=== PATIENT | female | born 2000 | race African-American/Black ===

== ENCOUNTER 2024-07-03 23:48 | Observation (INO) ==
--- NOTE | 2024-07-04 00:10 | Emergency Department Note ---
Impression & Plan Migraine, Rhinovirus ED Provider Note CHIEF COMPLAINT: Migraine headache HISTORY OF PRESENT ILLNESS: This 24-year-old female patient presented to the emergency department via private vehicle with a gradual onset of a severe generalized headache that started at 5 PM. The patient states the migraine is similar to their typical migraines. There has been associated photophobia, phonophobia, nausea and vomiting. The patient states she has had chills and subjective fever since Tuesday. She states that the headache came on suddenly at about. She denies any trauma or injury. There is no weakness or numbness of the extremities. There is no difficulty with speech or vision. No trauma to the head and no neck pain. The pain is severe, constant, and it is slowly increasing in severity. The patient rates the pain as sharp and throbbing and 10/10. The patient has taken 50 mg of prednisone and Imitrex as well as her regularly scheduled amitriptyline without relief of her symptoms. This is not the worst headache of the life and is similar to previous migraines. Previous imaging studies of the brain (approximately 1 month ago) have been normal. Patient has not yet followed up with neurology. She states her PCP will not send a referral because neurology is "too busy". REVIEW OF SYSTEMS: A 10 system review of systems was performed with positives and pertinent negatives listed in the history of present illness. All other systems were reviewed and are negative. ALLERGIES: NKDA PHYSICAL EXAM: Vital Signs: Reviewed Nurse's notes, vital signs stable. GENERAL: This is a 24-year-old female, who appears in pain, but non toxic in appearance and in no acute distress. MENTAL STATUS: Alert, oriented, and coherent. HEENT: Normocephalic. PERRLA. EOMI. Nares patent without nuchal rigidity. Tympanic membranes pearly glasgow without erythema or effusion bilaterally. Mucous membranes moist. NECK: Supple, no nuchal rigidity, nontender, no lymphadenopathy. HEART: Regular rhythm and normal rate without murmurs, ectopy, gallops, or rubs. LUNGS: Clear to auscultation bilaterally without wheezes, rales or rhonchi. No dullness to percussion. No accessory muscle use. No retractions. SKIN: Normal. NEUROLOGICAL: Pupils are round, equal and react to light. The optic fundi are normal and the discs are flat. The patient moves all extremities well and the gait is normal. EMERGENCY DEPARTMENT COURSE: I examined the patient. Previous medical records were reviewed. Patient was here at the end of May with similar symptoms. She did have refractory migraine and required multiple rounds of medications. Patient had CT/CT angiogram of the head and neck completed at that time which were negative. IV access was obtained. Labs drawn. Patient was medicated with IV fluids, Reglan, Toradol, diphenhydramine. Labs reviewed. Per my interpretation, there is no leukocytosis or anemia. No thrombocytopenia. Coags normal. Renal, hepatic function and electrolytes without significant abnormality. hCG negative. Respiratory bio fire testing is positive for rhinovirus. Patient was reassessed. She was updated on the workup completed. She notes her pain has gone from a 10/10 to an 8/10 with the medications she was given. Patient was medicated with IV acetaminophen, magnesium, and Zofran. Patient was again reassessed. She notes no change in her pain and still reports that in 8/10. Given the patient's persistent pain despite multiple rounds of medication, I did recommend inpatient care. I discussed case with my attending physician. I discussed the case with the live study manager. I discussed case with Dr. Gibson, [facility] hospitalist physician. He did agree to see the patient for further management. Please see hospitalist dictation regarding ongoing management and final disposition of this patient. The differential diagnosis includes acute intracranial bleed, meningitis, encephalitis, mass or mass effect, sinusitis, infection, tumor, headache, temporal arteritis and carbon monoxide exposure, URI, migraine, malignancy, among others. I attest that I have personally reviewed the patient's current medication list. Blood Pressure Screening: Patient was found to have a slightly elevated blood pressure due to circumstances. I do not believe that the patient requires hypertension monitoring. The chart was completed utilizing [employer] Speech voice recognition software. Grammatical errors, random word insertions, pronoun errors, and incomplete sentences are an occasional consequence of this system due to software limitations, ambient noise, and hardware issues. Any formal questions or concerns about the content, text, or information contained within the body of this dictation should be directly addressed to the provider for clarification. Past Med/Surg History Problem List Rhinovirus (Acute) Migraine (Acute) Medical History Migraines Surgical History No significant past surgical history Social History Smoking Status: Never smoker Preferred Language: Guinean Feels Safe at Home: Yes Home Meds Home Medications Medication Instructions Recorded Confirmed amitriptyline 10 mg tablet 10 mg PO DIRECTED 07/04/24 07/04/24 sumatriptan succinate 50 mg tablet 100 mg PO DIRECTED 07/04/24 07/04/24 Results & Data (ED) Vital Signs Vital Signs - 24 hr 07/03/24 23:51 07/04/24 00:37 07/04/24 00:39 Temperature 36.5 C Temperature Source Temporal Artery Scan Pulse Rate 65 73 Pulse Rate [Apical] Respiratory Rate 20 Respiratory Effort / Characteristics Non-Labored Spontaneous Respiratory Depth Normal Blood Pressure 133/90 Blood Pressure [Right Arm] Blood Pressure Mean 104 Blood Pressure Mean [Right Arm] Pulse Oximetry 97 98 Oxygen Delivery Method Room Air Room Air Sepsis Recent Fever Within 48 Hours No Sepsis New/Unexplained Change in Mental Status N/A Sepsis Action Taken by Nursing No Action Required 07/04/24 01:21 Temperature Temperature Source Pulse Rate Pulse Rate [Apical] 65 Respiratory Rate 20 Respiratory Effort / Characteristics Non-Labored Respiratory Depth Blood Pressure Blood Pressure [Right Arm] 103/72 Blood Pressure Mean Blood Pressure Mean [Right Arm] 82 Pulse Oximetry 100 Oxygen Delivery Method Room Air Sepsis Recent Fever Within 48 Hours Sepsis New/Unexplained Change in Mental Status Sepsis Action Taken by Nursing Laboratory Data 07/04/24 00:34 07/04/24 00:34 Lab Results 07/04/24 Range/Units 00:34 WBC 8.79 (4.8-10.8) K/ul RBC 4.67 (4.20-5.40) M/uL Hgb 12.7 (12.0-16.0) g/dl Hct 38.9 (37.0-47.0) % MCV 83.3 (80.0-100.0) fL MCH 27.2 (25.0-34.0) pg MCHC 32.6 (32.0-36.0) g/dL RDW Std Deviation 38.6 (36.4-46.3) fL RDW Coeff of Rigo 12.8 (11.5-14.5) % Plt Count 330 (130-400) K/uL MPV 8.6 L (9.4-12.4) fL Immature Gran % (Auto) 0.2 % Neut % (Auto) 93.8 % Lymph % (Auto) 4.9 % [place] % (Auto) 1.0 % Eos % (Auto) 0.0 % Baso % (Auto) 0.1 % Neut # (Auto) 8.24 H (1.40-6.50) K/uL Lymph # (Auto) 0.43 L (1.20-3.40) K/uL [place] # (Auto) 0.09 L (0.11-0.59) K/uL Eos # (Auto) 0.00 (0.00-0.50) K/uL Baso # (Auto) 0.01 (0.00-0.20) K/uL Immature Gran # (Auto) 0.02 (0.01-0.20) K/uL RBC Morphology Unremarkable PT 10.6 (9.0-12.0) Seconds INR 1.0 (0.9-1.1) APTT 23 (21-31) Seconds PTT Ratio 0.9 Sodium 137 (136-145) mmol/L Potassium 4.2 (3.5-5.1) mmol/L Chloride 105 (98-107) mmol/L Carbon Dioxide 22 (21-32) mmol/L Anion Gap 10 (3-11) BUN 7 (6-23) mg/dl Creatinine 0.72 (0.6-1.2) mg/dl Est Cr Clr Drug Dosing 96.5 ml/min Est GFR ( Amer) 136.8 ml/min Est GFR (Non-Af Amer) 118.0 ml/min BUN/Creatinine Ratio 9.7 L (10-20) Glucose 145 H (70-99(Fasting)) mg/dl Calcium 9.5 (8.6-10.3) mg/dl Magnesium 1.8 (1.7-2.4) mg/dl Total Bilirubin 0.3 (0.2-1.0) mg/dl AST 22 (13-39) U/L ALT 13 (7-52) U/L Alkaline Phosphatase 67 (34-104) U/L Total Protein 7.7 (6.0-8.3) gm/dl Albumin 4.4 (3.4-5.0) gm/dl Globulin 3.3 (2.5-4.0) gm/dl Albumin/Globulin Ratio 1.3 (0.9-2) HCG, Qual Negative (Negative) Adenovirus (PCR) Not Detected (NotDetected) B. pertussis DNA (PCR) Not Detected (NotDetected) B.parapertussis DNA PCR Not Detected (NotDetected) C. pneumoniae DNA (PCR) Not Detected (NotDetected) Coronavirus OC43 (PCR) Not Detected (NotDetected) Coronavirus HKU1 (PCR) Not Detected (NotDetected) Coronavirus 229E (PCR) Not Detected (NotDetected) SARS-CoV-2 (PCR) Not Detected (NotDetected) Coronavirus NL63 (PCR) Not Detected (NotDetected) Human Metapneumovir PCR Not Detected (NotDetected) Influenza Type A (PCR) Not Detected (NotDetected) Influenza Type B (PCR) Not Detected (NotDetected) M. pneumoniae (PCR) Not Detected (NotDetected) Parainfluenza 1 (PCR) Not Detected (NotDetected) Parainfluenza 2 (PCR) Not Detected (NotDetected) Parainfluenza 3 (PCR) Not Detected (NotDetected) Parainfluenza 4 (PCR) Not Detected (NotDetected) RSV (PCR) Not Detected (NotDetected) Entero/Rhino (PCR) DETECTED A (NotDetected) Administered Medications Discontinued Medications Diphenhydramine HCl (Diphenhydramine 50 Mg/Ml Vial) 25 mg IV NOW STA Stop: 07/04/24 00:08 Last Admin: 07/04/24 00:47 Dose: 25 mg Documented By: CHRIS Fluticasone Propionate (Fluticasone Propionate Na Spr 16 Gm Btl) 2 sprays NA NOW STA Stop: 07/04/24 02:05 Last Admin: 07/04/24 03:04 Dose: 2 sprays Documented By: CDM Sodium Chloride (Nss) 1,000 mls @ 999 mls/hr IV .Q1H1M MAYKEL Stop: 07/04/24 01:15 Last Infusion: 07/04/24 02:17 Dose: Infused Documented By: Admin: 07/04/24 00:31 Dose: 999 mls/hr Documented By: AN Acetaminophen (Ofirmev) 1,000 mg in 100 mls @ 400 mls/hr IV NOW STA Stop: 07/04/24 02:18 Last Infusion: 07/04/24 02:38 Dose: Infused Documented By: Admin: 07/04/24 02:11 Dose: 400 mls/hr Documented By: AN Magnesium Sulfate/Dextrose (Magnesium Sulfate / D5w) 1 gm in 100 mls @ 100 mls/hr IV NOW STA Stop: 07/04/24 03:04 Last Infusion: 07/04/24 03:45 Dose: Infused Documented By: Admin: 07/04/24 02:11 Dose: 100 mls/hr Documented By: AN Ketorolac Tromethamine (Ketorolac 30 Mg/Ml Vial) 30 mg IV NOW STA Stop: 07/04/24 00:08 Last Admin: 07/04/24 00:47 Dose: 30 mg Documented By: AN Metoclopramide HCl (Metoclopramide Hcl Inj 5 Mg/Ml 2 Ml Vial) 10 mg IV NOW STA Stop: 07/04/24 00:08 Last Admin: 07/04/24 00:47 Dose: 10 mg Documented By: AN Ondansetron HCl (Ondansetron Inj 2 Mg/Ml 2 Ml Vial) 4 mg IV NOW STA Stop: 07/04/24 02:08 Last Admin: 07/04/24 02:11 Dose: 4 mg Documented By: AN Discharge Plan Visit Data Chief Complaint: Headache Stated Complaint: MIGRANE ED Provider: Rico Chaudhary ED Midlevel Provider: Yeny Santos Discharge Problem: Migraine, Rhinovirus Patient Disposition: Admitted As Inpatient Forms Stand Alone Forms: [facility] Prescriptions Prescriptions: No Action amitriptyline 10 mg tablet 10 mg PO DIRECTED sumatriptan succinate 50 mg tablet 100 mg PO DIRECTED Referrals Referrals: PCP,NO [Primary Care Provider] -
[2024-07-04] MEDS: SODIUM CHLORIDE 0.9% 1,000 ML IV SCH (00:31)
[2024-07-04] MEDS: diphenhydrAMINE 50 MG/ML VIAL IV STA (00:47)
[2024-07-04] MEDS: KETOROLAC 30 MG/ML VIAL IV STA (00:47)
[2024-07-04] MEDS: METOCLOPRAMIDE HCL INJ 5 MG/ML 2 ML VIAL IV STA (00:47)
[2024-07-04 00:52] LABS: Hematocrit (blood only) 38.9 % (37.0-47.0); Hemoglobin 12.7 g/dl (12.0-16.0); Mean Corpuscular Hemoglobin 27.2 pg (25.0-34.0); Mean Corpuscular Hgb Conc 32.6 g/dL (32.0-36.0); Mean Corpuscular Volume 83.3 fL (80.0-100.0); Mean Platelet Volume 8.6 fL (9.4-12.4); Platelet Count 330 K/uL (130-400); RDW Coefficient of Variation 12.8 % (11.5-14.5); RDW Standard Deviation 38.6 fL (36.4-46.3); Red Blood Count 4.67 M/uL (4.20-5.40); White Blood Count 8.79 K/ul (4.8-10.8)
[2024-07-04 01:07] LABS: Albumin Globulin Ratio 1.3 (0.9-2); Albumin Level 4.4 gm/dl (3.4-5.0); BUN Creatinine Ratio 9.7 (10-20); Bilirubin,Total 0.3 mg/dl (0.2-1.0); Calcium 9.5 mg/dl (8.6-10.3); Creatinine Clr Calc Pharmacy 96.5 ml/min; Est GFR (African American) 136.8 ml/min; Globulin 3.3 gm/dl (2.5-4.0); Potassium 4.2 mmol/L (3.5-5.1); Pregnancy Test, Serum Negative (Negative); Total Protein 7.7 gm/dl (6.0-8.3)
[2024-07-04 01:18] LABS: Basophils # (auto) 0.01 K/uL (0.00-0.20); Basophils % (auto) 0.1 %; Immature Granulocytes # (auto) 0.02 K/uL (0.01-0.20); Immature Granulocytes % (auto) 0.2 %; Lymphocytes # (auto) 0.43 K/uL (1.20-3.40); Lymphocytes % (auto) 4.9 %; Monocytes # (auto) 0.09 K/uL (0.11-0.59); Neutrophils # (auto) 8.24 K/uL (1.40-6.50); Neutrophils % (auto) 93.8 %; RBC Morphology Unremarkable
[2024-07-04 01:25] LABS: Partial Thromboplastin Ratio 0.9; Partial Thromboplastin Time 23 Seconds (21-31); Prothrombin Time 10.6 Seconds (9.0-12.0)
[2024-07-04 01:44] LABS: Adenovirus PCR Not Detected (NotDetected); Bordetella parapertussis PCR Not Detected (NotDetected); Bordetella pertussis PCR Not Detected (NotDetected); Chlamydia pneumoniae PCR Not Detected (NotDetected); Coronavirus 229E PCR Not Detected (NotDetected); Coronavirus CoV-2 (COVID19)PCR Not Detected (NotDetected); Coronavirus HKU1 PCR Not Detected (NotDetected); Coronavirus NL63 PCR Not Detected (NotDetected); Coronavirus OC43PCR Not Detected (NotDetected); Human Metapneumovirus PCR Not Detected (NotDetected); Influenza A PCR Not Detected (NotDetected); Influenza B PCR Not Detected (NotDetected); Mycoplasma pneumoniae PCR Not Detected (NotDetected); Parainfluenza Virus 1 PCR Not Detected (NotDetected); Parainfluenza Virus 2 PCR Not Detected (NotDetected); Parainfluenza Virus 3 PCR Not Detected (NotDetected); Parainfluenza Virus 4 PCR Not Detected (NotDetected); Respiratory Syncytial VirusPCR Not Detected (NotDetected); Rhinovirus/Enterovirus PCR DETECTED (NotDetected)
[2024-07-04] MEDS: MAGNESIUM SULFATE / D5W 1 GM/100 ML BAG IV STA (02:11)
[2024-07-04] MEDS: ONDANSETRON INJ 2 MG/ML 2 ML VIAL IV STA (02:11)
[2024-07-04] MEDS: ACETAMINOPHEN 1,000 MG/100 ML VIAL IV STA (02:11)
[2024-07-04 02:26] LABS: Magnesium 1.8 mg/dl (1.7-2.4)
[2024-07-04] MEDS: FLUTICASONE PROPIONATE NA SPR 16 GM BTL STA (03:04)
[2024-07-04] MEDS ORDERED: oxyCODONE HCL IR 5 MG TAB (IMMEDIATE RELEASE) PO PRN (04:14)
[2024-07-04] MEDS: Patient's ALLERGY Info needs ENTERED STA (04:43)
[2024-07-04] MEDS ORDERED: LORazepam 0.5 MG TAB PO PRN (04:49)
[2024-07-04] MEDS ORDERED: KETOROLAC TROMETHAMINE 15 MG/ML VIAL IV PRN (04:49)
[2024-07-04] MEDS: DEXAMETHASONE SOD INJ 4 MG/ML VIAL IV STA (04:55)
--- NOTE | 2024-07-04 05:14 | History & Physical Report ---
Date of Service July 04, 2024 Assessment & Plan (1) Headache: Plan: Intractable migraine headache Possibly precipitated by entero/rhinovirus infection Hyperglycemia with DM OBS GMF CT head given patient description of worst migraine attack Decadron and Imitrex trial Increase maintenance amitriptyline dose from 10 mg to 25 mg at bedtime Neurology consult if without improvement Supportive management for viral illness Check hemoglobin A1c DVT prophylaxis. SCDs Full code Text document was generated using [employer] voice recognition software. It may contain grammatical or spelling errors. Kindly contact undersigned for clarification of any documentation item in question. History of Present Illness Chief Complaint: Intractable headache Primary Care Provider: Francis Booker History obtained from patient, family, and records. Medical history significant for migraine. Last ER visit May 2024 for headache. Patient seen at PCPs office on follow-up visit last month. Patient started on amitriptyline at bedtime for migraine. Yesterday, patient had migraine attack more intense than usual. Bright spots, nausea, vomiting. Denies chest pain, SOB, abdominal pain. Denies unusual stress at home. Intractable discomfort at the ER. Medical History as above Surgical History : None Family History : Bronchial asthma Personal/Social history : Non-smoker, no EtOH intake, unemployed Allergies Allergy/AdvReac Type Severity Reaction Status Date / Time No Known Allergies Allergy Verified 07/04/24 04:39 Home Medications Medication Instructions Recorded Confirmed Type amitriptyline 10 mg tablet 10 mg PO DIRECTED 07/04/24 07/04/24 History sumatriptan succinate 50 mg tablet 100 mg PO DIRECTED 07/04/24 07/04/24 History Past Med/Surg History Problem List Rhinovirus (Acute) Migraine (Acute) Medical History Migraines Surgical History No significant past surgical history Social History Smoking Status: Never smoker Second Hand Exposure: No; Do You Dip or Chew Tobacco: No; Hx Alcohol Use: No Hx Substance Use: No Preferred Language: Romansh Communication Ability: Effective Director Of Special Education Required: No Beliefs That Will Affect Care: None Current Living Situation: Parent Current Living Situation Comment: lives with mom Other Information That Helps Us Care for You: No Feels Safe at Home: Yes Safety Concerns: Feels Safe At This Time Assistive Devices: None Review of Systems Review of Systems: As per HPI, all other systems reviewed and negative Physical Exam Physical Exam: GENERAL: uncomfortable, no respiratory distress SKIN: Normal color, warm HEENT: [place]pectacled, [place] palpebral conjunctivae, no ptosis, dry buccal mucosa NECK : Supple, no tenderness CHEST : CTA, no tenderness HEART : RRR, no obvious murmurs ABDOMEN: Some distention, nontender EXTREMITIES : Minimal LE swelling, no LE tenderness, no other conspicuous deformities noted NEUROLOGIC : Coherent, no facial asymmetry, no other gross focality Results & Data Results & Data Vital Signs (Past 12 Hours) Vital Signs Temp Pulse Pulse Resp BP BP Pulse Ox 07/04/24 04:32 66 07/04/24 01:21 65 20 103/72 100 07/04/24 00:39 73 07/04/24 00:37 98 07/03/24 23:51 36.5 C 65 20 133/90 97 O2 Del Method 07/04/24 04:32 07/04/24 01:21 Room Air 07/04/24 00:39 07/04/24 00:37 Room Air 07/03/24 23:51 Room Air Laboratory Results Laboratory Results WBC 8.79 K/ul (4.8-10.8) 07/04/24 00:34 RBC 4.67 M/uL (4.20-5.40) 07/04/24 00:34 Hgb 12.7 g/dl (12.0-16.0) 07/04/24 00:34 Hct 38.9 % (37.0-47.0) 07/04/24 00:34 MCV 83.3 fL (80.0-100.0) 07/04/24 00:34 MCH 27.2 pg (25.0-34.0) 07/04/24 00:34 MCHC 32.6 g/dL (32.0-36.0) 07/04/24 00:34 RDW Std Deviation 38.6 fL (36.4-46.3) 07/04/24 00:34 RDW Coeff of Rigo 12.8 % (11.5-14.5) 07/04/24 00:34 Plt Count 330 K/uL (130-400) 07/04/24 00:34 MPV 8.6 fL (9.4-12.4) L 07/04/24 00:34 Immature Gran % (Auto) 0.2 % 07/04/24 00:34 Neut % (Auto) 93.8 % 07/04/24 00:34 Lymph % (Auto) 4.9 % 07/04/24 00:34 [place] % (Auto) 1.0 % 07/04/24 00:34 Eos % (Auto) 0.0 % 07/04/24 00:34 Baso % (Auto) 0.1 % 07/04/24 00:34 Neut # (Auto) 8.24 K/uL (1.40-6.50) H 07/04/24 00:34 Lymph # (Auto) 0.43 K/uL (1.20-3.40) L 07/04/24 00:34 [place] # (Auto) 0.09 K/uL (0.11-0.59) L 07/04/24 00:34 Eos # (Auto) 0.00 K/uL (0.00-0.50) 07/04/24 00:34 Baso # (Auto) 0.01 K/uL (0.00-0.20) 07/04/24 00:34 Immature Gran # (Auto) 0.02 K/uL (0.01-0.20) 07/04/24 00:34 RBC Morphology Unremarkable 07/04/24 00:34 PT 10.6 Seconds (9.0-12.0) 07/04/24 00:34 INR 1.0 (0.9-1.1) 07/04/24 00:34 APTT 23 Seconds (21-31) 07/04/24 00:34 PTT Ratio 0.9 07/04/24 00:34 Sodium 137 mmol/L (136-145) 07/04/24 00:34 Potassium 4.2 mmol/L (3.5-5.1) 07/04/24 00:34 Chloride 105 mmol/L (98-107) 07/04/24 00:34 Carbon Dioxide 22 mmol/L (21-32) 07/04/24 00:34 Anion Gap 10 (3-11) 07/04/24 00:34 BUN 7 mg/dl (6-23) 07/04/24 00:34 Creatinine 0.72 mg/dl (0.6-1.2) 07/04/24 00:34 Est Cr Clr Drug Dosing 96.5 ml/min 07/04/24 00:34 Est GFR ( Amer) 136.8 ml/min 07/04/24 00:34 Est GFR (Non-Af Amer) 118.0 ml/min 07/04/24 00:34 BUN/Creatinine Ratio 9.7 (10-20) L 07/04/24 00:34 Glucose 145 mg/dl (70-99(Fasting)) H 07/04/24 00:34 Calcium 9.5 mg/dl (8.6-10.3) 07/04/24 00:34 Magnesium 1.8 mg/dl (1.7-2.4) 07/04/24 00:34 Total Bilirubin 0.3 mg/dl (0.2-1.0) 07/04/24 00:34 AST 22 U/L (13-39) 07/04/24 00:34 ALT 13 U/L (7-52) 07/04/24 00:34 Alkaline Phosphatase 67 U/L (34-104) 07/04/24 00:34 Total Protein 7.7 gm/dl (6.0-8.3) 07/04/24 00:34 Albumin 4.4 gm/dl (3.4-5.0) 07/04/24 00:34 Globulin 3.3 gm/dl (2.5-4.0) 07/04/24 00:34 Albumin/Globulin Ratio 1.3 (0.9-2) 07/04/24 00:34 HCG, Qual Negative (Negative) 07/04/24 00:34 Adenovirus (PCR) Not Detected (NotDetected) 07/04/24 00:34 B. pertussis DNA (PCR) Not Detected (NotDetected) 07/04/24 00:34 B.parapertussis DNA PCR Not Detected (NotDetected) 07/04/24 00:34 C. pneumoniae DNA (PCR) Not Detected (NotDetected) 07/04/24 00:34 Coronavirus OC43 (PCR) Not Detected (NotDetected) 07/04/24 00:34 Coronavirus HKU1 (PCR) Not Detected (NotDetected) 07/04/24 00:34 Coronavirus 229E (PCR) Not Detected (NotDetected) 07/04/24 00:34 SARS-CoV-2 (PCR) Not Detected (NotDetected) 07/04/24 00:34 Coronavirus NL63 (PCR) Not Detected (NotDetected) 07/04/24 00:34 Human Metapneumovir PCR Not Detected (NotDetected) 07/04/24 00:34 Influenza Type A (PCR) Not Detected (NotDetected) 07/04/24 00:34 Influenza Type B (PCR) Not Detected (NotDetected) 07/04/24 00:34 M. pneumoniae (PCR) Not Detected (NotDetected) 07/04/24 00:34 Parainfluenza 1 (PCR) Not Detected (NotDetected) 07/04/24 00:34 Parainfluenza 2 (PCR) Not Detected (NotDetected) 07/04/24 00:34 Parainfluenza 3 (PCR) Not Detected (NotDetected) 07/04/24 00:34 Parainfluenza 4 (PCR) Not Detected (NotDetected) 07/04/24 00:34 RSV (PCR) Not Detected (NotDetected) 07/04/24 00:34 Entero/Rhino (PCR) DETECTED (NotDetected) A 07/04/24 00:34 Code Status & VTE Plan VTE Prophylaxis Plan VTE Prophylaxis will be ordered: Yes
[2024-07-04] MEDS: SODIUM CHLORIDE 0.9% 1,000 ML IV ONE (05:19)
[2024-07-04] MEDS: PROMETHAZINE 6.25 MG/50.25 ML BAG IV PRN (05:30)
[2024-07-04] MEDS: SUMAtriptan succinate 6 MG/0.5 ML VIAL SQ STA (05:33)
--- NOTE | 2024-07-04 06:45 | CT Scan Report ---
CT OF THE HEAD WITHOUT CONTRAST CLINICAL HISTORY: Intractable headache. COMPARISON STUDY: Head CT and CTA of the head June 02, 2024. CT DOSE: 700.73 mGy.cm TECHNIQUE: Helical axial images of the head were obtained without IV contrast. Automated exposure con trol was utilized for the study. A dose lowering technique was utilized adhering to the principles o f ALARA. FINDINGS: No acute intracranial hemorrhage, midline shift or mass effect is present. The ventricular system is unremarkable. The basal cisterns are patent. No extra-axial collections are present. There are no findings to suggest acute dural sinus thrombosis or acute territorial infarct. No significant calvarial abnormalities are present. There is mild ethmoid sinus mucosal thickening. IMPRESSION: No acute intracranial findings. ACT 112: Negative or not required by law. Electronically signed by: Markus Vallecillo M.D. 07/04/2024 6:44 AM
[2024-07-04 07:18] LABS: Estimated Average Glucose 114 mg/dl; Hemoglobin A1C 5.6 % (4.5-5.6)
[2024-07-04 07:48] VITALS: BP 115/77; PULSE 80; RESP 18; TEMP 97.7; O2SAT 99
[2024-07-04] MEDS: ACETAMINOPHEN 325 MG TAB PO PRN (07:55)
--- OUTSIDE RECORDS SUMMARY | 2024-07-04 12:49 | External Medical Summary | Summary of Care ---
Author Name Unknown Organization [facility] Address [address] [place] [address] Phone [phone] Care Team Providers Care Table Lever Operator Name Role Phone Unavailable Primary Care Provider Unavailabl e Reason for Visit * Reason Onset Date Comments Emergency Department Follow-Up Medication Administration 06/06/2024 Flu an d/or Pneumo Inj Encounter Details Date Type Department Care Team (Late st Contact Info) Description 06/06/2024 11:00 AM EDT Office Visit General Internal Medicine [facility] [place] [address] [facility] [place] [address] Cathy Mckinney MD [address] [facility] [place] [address] Intractable migraine without aura and with status migrainosus*; Intractable migraine with aura with status migrainosus; Need for prophylactic vaccination and inoculation against influenza Allergies No known active allergiesdocumented as of this encounter (statuses as of 06/06/2024) Medications Medication Sig Dispensed Refills Start Date End Date Status Propranolol HCl ER 60 MG Oral Capsule Extended Release 24 Hour (Inderal LA)Indications:Intr actable migraine with aura with status migrainosus Take 1 Capsule by mouth in the morning. 30 Capsule 5 08/03/2023 Active Baclofen 10 MG Oral Tablet (Lioresal) Take 1 Tablet by mouth in the morning and 1 Tablet before bedtime. 20 Tablet 08/03/2023 Active Additional Information Patient not taking.Reported on 06/06/2024 Amitriptyline HCl 10 MG Oral Tablet (Elavil)Indications :Intractable migraine with aura with status migrainosus Take 1 Tablet by mouth at bedtime. 30 Tablet 5 06/06/2024 Active predniSONE 10 MG Oral Tablet (Deltasone)Indicati ons:Intractable migraine with aura with status migrainosus Take 5 tabs for 2 days, 4 tabs for 2 days, 3 tabs for 2 days, 2 tabs for 2 days 1 tab for 2 days 30 Tablet 06/06/2024 Active Ondansetron 8 MG Oral Tablet Disintegrating (Zofran)Indications :Intractable migraine with aura with status migrainosus Place 1 Tablet on tongue every 8 hours as needed for Nausea. dissolve on tongue. 30 Tablet 5 06/06/2024 Active SUMAtriptan Succinate 50 MG Oral Tablet (Imitrex)Indication s:Intractable migraine with aura with status migrainosus Take 2 tablets at onset of migraine and one tablet every 2 hours as needed, not more than 5 tablets in 24 hours 6 Tablet 5 06/06/2024 Active Rizatriptan Benzoate 10 MG Oral Tablet Disintegrating (Maxalt-QUARRY PLUG AND FEATHER DRILLER)Indicat ions:Intractable migraine with aura with status migrainosus Take 1 Tablet by mouth as needed for Migraine. at onset of headache, may repeat every 2 hours. No more than 3 pills in 24 hours 20 Tablet 3 08/03/2023 4 Discontinu ed(Medicat ion/Dose Changed) Ondansetron 8 MG Oral Tablet Disintegrating (Zofran)Indications :Intractable migraine with aura with status migrainosus Place 1 Tablet on tongue every 8 hours as needed for Nausea. dissolve on tongue. 30 Tablet 5 08/03/2023 4 Discontinu ed(Refill) methylPREDNISolone 4 MG Oral Tablet Therapy Pack (Medrol Dosepack)Indication s:Intractable migraine with aura with status migrainosus follow package directions 21 Tablet 08/03/2023 4 Discontinu ed(End of Procedure) documented as of this encounter (statuses as of 06/06/2024) Active Problems Problem Noted Date Diagnosed Date Migraine 08/03/2023 documented as of this encounter (statuses as of 06/06/2024) Immunizations Name Administration Dates Next Due DTaP Dipth/Tet/Acell Pertussis (Infanrix), Peds 10/15/2005,05/31/2002,2001,06/23,2001 HIB Hep B - HIB Hepatitis B (Comvax) 05/31/2002, 2001,2001 IPV - Polio Virus Vaccine (Inact) 2001,2001,2001,04/25 MMR - Measles/Mumps/Rubella Vaccine 10/15/2005,0 04/16/2002 Meningococcal Conjugate Vacc ine (Menactra/Menveo) 11/13/2012 PPD 10/15/2005,04/16/2002 Pneumococcal Conjugate Vacci ne, 7 Valent 05/31/2002,2001,2001,04/25 Seasonal Influenza Virus Vac cine, Unspecified Formulation 11/13/2012,08/20/2002 Seasonal Influenza, Trivalen t, (IIV3), PF, (Fluzone) 06/06/2024 TDAP, Age 7 and older, IM (Adacel) 11/13/2012 Varicella Vaccine (Chicken Pox) 06/28/2008,04/16 documented as of this encounter Social History Tobacco Use Types Packs/Day Years Used Date Smoking Tobacco: Never Smokeless Tobacco: Never Tobacco Cessation:Counseling Given: Not Answered Alcohol Use Standard Drinks/Week Comments Yes 0 (1 standard drink = 0.6 oz pur e alcohol) rare Hunger Vital Sign Answer Date Recorded Within the past 12 months, y ou worried that your food would run out before you got the money to buy more. Never true 08/03/20 23 Within the past 12 months, t he food you bought just didn't last and you didn't have money to get more. Never true 08/03/2023 Childcare Answer Date Recorded Do you feel overwhelmed with taking care of a child, family member or friend? No 08/03/2023 Does your family need help f inding childcare? (Household - for ages 0-17 years) Not on file 08/03/2023 Clothing Answer Date Recorded Have you been unable to get clothing when it was really needed? No 08/03/2023 Is your family able to get c lothes or diapers when needed? (Household - for ages 0-17 years) Not on file 08/03/2023 Personal Safety Answer Date Recorded Do you feel unsafe or have concerns for your saf ety? No 08/03/2023 Do you have concerns for you r family's safety? (Household - for ages 0-17 years) Not on file 08/03/2023 Utilities Answer Date Recorded Do you have trouble paying y our heating, water, or electric bill? No 08/03/2023 Is your family able to pay t he heat, water, or electric bill? (Household - for ages 0-17 years) Not on file 08/03/2023 Does your family have access to good internet? (Household - for ages 0-17 years) Not on file 08/03/2023 Employment Status Answer Date Recorded Are you unemployed or without regular income? No 08/03/2023 [facility] the household have a [facility] source [facility] income? (Household - for ages 0-17 years) Not on file 08/03/2023 Social Connections Answer Date Recorded How often do you feel lonely or isolated from th ose around you? Rarely 08/03/2023 Financial Resource Strain Answer Date R ecorded Do you have any trouble payi ng for your medications, or do you think you might in the future? No 08/03/2023 Does your family have troubl e paying for medicine? (Household - for ages 0-17 years) Not on file 08/03/2023 Transportation Needs Answer Date Record ed READ ONLY Do you have troubl e getting a ride to medical visits or work? Never True 08/03/2023 Does your family have a hard time getting a ride to doctors visits? (Household - for ages 0-17 years) Not on file 08/03/2023 Has lack of transportation k ept you from medical appointments, meetings, work, or from getting things needed for daily living? Check all that apply. (Adult - for ages 18 years and over) Not on file 08/03/2023 Do you (or your family) have trouble finding or paying for a ride (transportation)? (Household - for ages 0-17 years) Not on file 08/03/2023 Housing Stability Answer Date Recorded Do you currently live in a s helter or have no steady place to sleep at night? No 08/03/2023 READ ONLY Do you think you a re at risk of becoming homeless? No 08/03/2023 Does your family worry about paying for your home or becoming homeless? (Household - for ages 0-17 years) Not on file 1 10/03/2022 Are you homeless or worried that you might be in the future? (Adult - for ages 18 years and over) Not on file Are you (or your family) wendy eless or worried that you might be in the future? (Household - for ages 0-17 years) Not on file Food Insecurity Answer Date Recorded Do you need food for this week? No 08/03/2023 Are you able to get enough f ood for your family? (Household - for ages 0-17 years) Not on file 08/03/2023 Does your family need food t his week? (Household - for ages 0-17 years) Not on file 08/03/2023 Do you always have enough fo od for your family? (Household - for ages 0-17 years) Not on file 08/03/2023 Sex and Gender Information Value Date Recorded Sex Assigned at Female 08/03/2023 10:30 AM EDT Gender Identity Female 08/03/2023 10:30 AM EDT Sexual Orientation Choose not to disclose 2022 10:30 AM EDT Job Start Date Occupation Industry Not on file Not on file Not on file documented as of this encounter Last Filed Vital Signs Vital Sign Reading Time Taken Comments Blood Pressure 102/70 06/06/2024 11:08 AM EDT Pulse 85 06/06/2024 11:08 AM EDT Temperature 37.3 C (99.2 F) 06/06/2024 11:08 AM E DT Respiratory Rate 16 06/06/2024 11:08 AM EDT Oxygen Saturation - - Inhaled Oxygen Concentration - - Weight 58.3 kg (128 lb 9.6 oz) 06/06/2024 11:08 AM EDT Height 150.4 cm (4' 11.21") 06/06/2024 11:08 AM EDT Body Mass Index 25.79 06/06/2024 11:08 AM EDT documented in this encounter Patient Instructions * Patient Instructions* Anu Muhammad MED ASSIST - 06/06/2024 11:38 AM EDT ~~PATIENT INSTRUCTIONS FOR FLU SHOT~~ Possible side effects of influenza vaccine, (flu shot), are usually mild and include: 1. Soreness or redness at injection site 2. Low grade fever 3. Body aches You may use Tylenol/Acetaminophen as needed for these symptoms. LET YOUR DOCTOR KNOW IMMEDIATELY IF YOU HAVE DIFFICULTY BREATHING OR SWALLOWING, EXPERIENCE ITCHINGOF FEET OR HANDS, HAVE SWELLING OF EYES, FACE OR INSIDE OF NOSE. documented in this encounter Progress Notes * Anu Muhammad MED ASSIST - 06/06/2024 11:38 AM EDT PRE - ADMINISTRATION DOCUMENTATION Are you experiencing any cold symptoms or fever? No Have you had Guillain-[place] Syndrome (an illness that causes paralysis) within the last 6 weeks? No Have you had the flu shot in the past? YES Have you ever had a reaction to the flu shot? No GIRISH Cantu, 06/06/2024 11:38 AM Immunization Administration Documentation Time Out Procedure Performed: Yes Patient Identified (Ask Name/Date of ): Yes Does the patient have a fever greater than 101 degrees today? No Patient allergic to latex? No VFC Stock: No Immunization(s) verified: Yes, Immunization Name: Flu, VIS Sheet(s) given: Yes Verified Side and Site: Yes Verified Shot(s) with Parent(s)/Patient: Yes * Cathy Mckinney MD - 06/06/2024 11:19 AM EDT SUBJECTIVE: Karina Mcgarry is a 24 year old female. Chief Complaint Patient presents with Emergency Department Follow-Up HPI: 24 year old YOfemale with PMH as listed below presents here for ER follow up. Pt went to ER 5 days and 7-10 days ago twice with severe headache on the left side specially temporal and also asso with nausea, light sensitivity, sound sensitivity, blurring of vision, sometimes lightheadedness and ringing in the left ear but no numbness and tingling and found to have normal blood work and CT of head and treated with pain medications which helped. ER note is not available so not able to see all details.. Since discharge feeling same . New issue now -migraine for last 1 year but getting worse for last 2 weeks been constant, lasting for hours and all day , worst 05/22 . On propanolol for last 8 months not helpful and rizatriptan not helping -baclofen helps some and zofran help with nausea -some stress and insomnia for a while but more lately . Trouble falling sleep . Also neck pain and both jaw pain -drinks plenty of fluid , caffeine Patient Active Problem List Diagnosis Migraine Current Outpatient Medications Medication Sig Dispense Refill Rizatriptan Benzoate 10 MG Oral Tablet Disintegrating (Maxalt-QUARRY PLUG AND FEATHER DRILLER) Take 1 Tablet by mouth as neededfor Migraine. at onset of headache, may repeat every 2 hours. No more than 3 pills in 24 hours 20 Tablet 3 Propranolol HCl ER 60 MG Oral Capsule Extended Release 24 Hour (Inderal LA) Take 1 Capsule by mouthin the morning. 30 Capsule 5 Ondansetron 8 MG Oral Tablet Disintegrating (Zofran) Place 1 Tablet on tongue every 8 hours as needed for Nausea. dissolve on tongue. (Patient not taking: Reported on 06/06/2024) 30 Tablet 5 methylPREDNISolone 4 MG Oral Tablet Therapy Pack (Medrol Dosepack) follow package directions (Patient not taking: Reported on 06/06/2024) 21 Tablet 0 Baclofen 10 MG Oral Tablet (Lioresal) Take 1 Tablet by mouth in the morning and 1 Tablet before bedtime. (Patient not taking: Reported on 06/06/2024) 20 Tablet 0 No current facility-administered medications for this visit. The patient's medication list was reviewed and updated as needed. Past Medical History: Diagnosis Date Asthma Social History Socioeconomic History Marital status: Single Tobacco Use Smoking status: Never Smokeless tobacco: Never Vaping Use Vaping status: Never Used Substance and Sexual Activity Alcohol use: Yes Comment: rare Drug use: Never Social Determinants of Health Financial Resource Strain: Low Risk (08/03/2023) Financial Resource Strain Do you have any trouble paying for your medications, or do you think you might in the future? (Adult - for ages 18 years and over): No Food Insecurity: No Food Insecurity (08/03/2023) Food Insecurity Do you need food for this week? (Adult - for ages 18 years and over): No Transportation Needs: No Transportation Needs (08/03/2023) Transportation Needs Do you have trouble getting a ride to medical visits or work? (Adult - for ages 18 years and over):Never True Social Connections: Socially Integrated (08/03/2023) Social Connections How often do you feel lonely or isolated from those around you? (Adult - for ages 18 years and over): Rarely Housing Stability: Low Risk (08/03/2023) Housing Stability Do you currently live in a fci or have no steady place to sleep at night? (Adult - for ages 18 years and over): No Do you think you are at risk of becoming homeless? (Adult - for ages 18 years and over): No Review of patient's allergies indicates: No Known Allergies Family History Problem Relation Name Age of Onset Asthma Mother Bruna Mcgarry Cancer Mother Bruna Mcgarry Allergies Sister Cristofer Peace Family Status Relation Status Mo (Not Specified) Sis (Not Specified) REVIEW OF SYSTEMS: All 10 systems reviewed and negative except mentioned in HPI OBJECTIVE: BP 102/70 | Pulse 85 | Temp 37.3 C (99.2 F) (Tympanic) | Resp 16 | Ht 1.504 m (4' 11.21") | Wt58.3 kg (128 lb 9.6 oz) | BMI 25.79 kg/m | BSA 1.56 m PHYSICAL EXAM: General: alert, healthy, and no distress Head: Normocephalic, No masses, lesions, tenderness or abnormalities, TMJ tendernes +ve b/l Ears: External ears normal, Canals clear, TM's Normal Nose: no purulent discharge, mucosal edema, mucosal erythema Oropharynx: no exudate, no erythema, lips, buccal mucosa, and tongue normal, and mucous membranes are moist Neck: supple, no adenopathy, no bruits, thyroid normal size, non-tender, without nodularity Heart: regular rate & rhythm, no murmur, and no gallops Lungs: chest symmetric with normal AP diameter, no chest deformities noted, no chest wall tenderness, lungs clear to auscultation Abdomen: abdomen soft, non-tender, normal bowel sounds, and no masses or organomegaly Extremities: less than 2 second capillary refill, no joint deformities, effusion, or inflammation ASSESSMENT AND PLAN Intractable migraine without aura and with status migrainosus (Primary) As below Intractable migraine with aura with status migrainosus - Amitriptyline HCl 10 MG Oral Tablet (Elavil); Take 1 Tablet by mouth at bedtime. new - predniSONE 10 MG Oral Tablet (Deltasone); Take 5 tabs for 2 days, 4 tabs for 2 days, 3 tabs for 2days, 2 tabs for 2 days 1 tab for 2 days - Ondansetron 8 MG Oral Tablet Disintegrating (Zofran); Place 1 Tablet on tongue every 8 hours as needed for Nausea. dissolve on tongue. - SUMAtriptan Succinate 50 MG Oral Tablet (Imitrex); Take 2 tablets at onset of migraine and one tablet every 2 hours as needed, not more than 5 tablets in 24 hours - no more than 2-32 /week , can add Excedrin migraine Need for prophylactic vaccination and inoculation against influenza - INFLUENZA VAC, TRIVALENT, (IIV3), PF, 0.5 ML (FLUZONE) Follow Up: Return in about 2 months (around 08/06/2024) for recheck with PCP. | For: recheck with PCP A total of at least 35 minutes were spent in evaluating this patient, in face to face communicationwith the patient and in coordinating care of this patient. ' Cathy Mckinney MD 11:19 AM 06/06/2024 documented in this encounter Nursing Notes * Elda Pimentel LPN - 06/06/2024 11:07 AM EDT Emergency Department Follow-Up ER follow up. Went to [facility] for migraines documented in this encounter Plan of Treatment Upcoming Encounters Date Type Department Care Team (Late st Contact Info) Description 08/10/2024 8:20 AM EST Office Visit General Internal Medicine [facility] [place] [address] [facility] [place] [address] Cathy Mckinney MD [address] [place] [address] Health Maintenance Due Date Last Done Comments Depression Screening 2013 Gonorrhea / Chlamydia Screen 01/25/2016 HIV Screening 01/25/2016 HPV (Gardasil) Vaccine (1 - 3-dose series) 01/25/2016 Hepatitis C Screening 2019 Pap Smear 2022 DTap/Tdap Vaccines (7 - Td or Tdap) 11/13/2022 11/13/2012, 10/15/2005, 05/31/2002, Additional history exists COVID-19 Vaccine ( season) 2024 Hepatitis B Vaccine Completed 05/31/2002, 2001, 2001 MENINGOCOCCAL (MENACTRA/MENVEO) Aged Out 11/13/2012 No longer eligible based on patient's age to complete this topic Influenza Vaccine (FLU shot) Completed 01/2024, 11/13/2012, 08/20/2002 Pneumococcal Vaccine: Pediatrics (0 to 5 Years) and At-Risk Patients (6 to 64 Years) Aged Out No longer eligible based on patient's age to complete this topic documented as of this encounter Medical Devices Not on filedocumented as of this encounter Visit Diagnoses Diagnosis Intractable migraine without aura and with status migrainosus- Primary Migraine without aura, with intractable migraine, so stated, with status migrainosus Intractable migraine with aura with status migrainosus Migraine with aura, with intractable migraine, so stated, with status migrainosus Need for prophylactic vaccination and inoculation against influenza documented in this encounter
--- NOTE | 2024-07-04 13:15 | Discharge Summary ---
Date of Service July 04, 2024 Admission HPI Per Admitting Provider History obtained from patient, family, and records. Medical history significant for migraine. Last ER visit May 2024 for headache. Patient seen at PCPs office on follow-up visit last month. Patient started on amitriptyline at bedtime for migraine. Yesterday, patient had migraine attack more intense than usual. Bright spots, nausea, vomiting. Denies chest pain, SOB, abdominal pain. Denies unusual stress at home. Intractable discomfort at the ER. Medical History as above Surgical History : None Family History : Bronchial asthma Personal/Social history : Non-smoker, no EtOH intake, unemployed Admission Exam Per Admitting Provider GENERAL: uncomfortable, no respiratory distress SKIN: Normal color, warm HEENT: Bespectacled, Schlater palpebral conjunctivae, no ptosis, dry buccal mucosa NECK : Supple, no tenderness CHEST : CTA, no tenderness HEART : RRR, no obvious murmurs ABDOMEN: Some distention, nontender EXTREMITIES : Minimal LE swelling, no LE tenderness, no other conspicuous deformities noted NEUROLOGIC : Coherent, no facial asymmetry, no other gross focality Principal Diagnosis Headache Discharge Exam GENERAL: uncomfortable, no respiratory distress SKIN: Normal color, warm HEENT: Bespectacled, Schlater palpebral conjunctivae, no ptosis, moist buccal mucosa NECK : Supple, no tenderness CHEST : CTA, no tenderness HEART : RRR, no obvious murmurs ABDOMEN: Some distention, nontender EXTREMITIES : Minimal LE swelling, no LE tenderness, no other conspicuous deformities noted NEUROLOGIC : Coherent, no facial asymmetry, no other gross focality Discharge Data Allergies Allergy/AdvReac Type Severity Reaction Status Date / Time No Known Allergies Allergy Verified 07/04/24 04:39 Consultations 07/04/24 03:47 ED Decision to Admit Stat Ordered Studies 07/04/24 04:42 CT head/brain wo con Stat Hospital Course (1) Headache: Per prior attending w/ addendum: Intractable migraine headache Possibly precipitated by entero/rhinovirus infection Hyperglycemia with DM OBS GMF CT head given patient description of worst migraine attack Decadron and Imitrex trial Increase maintenance amitriptyline dose from 10 mg to 25 mg at bedtime Neurology consult if without improvement Supportive management for viral illness Check hemoglobin A1c DVT prophylaxis. SCDs Full code Addendum 07/04/2024: Patient was seen and examined at bedside as a follow-up of acute migraine attack ISO chronic migraine and rhinovirus URTI. Patient reports improving cough and sore throat symptoms. Reports dry cough. Patient reports resolution of her headache and denies any nausea and vomiting. She reports back to her baseline and is hemodynamically stable. She would like to go home. She is being discharged with following instruction at the point of discharge: Follow-up with your primary care physician within a week time and likely you will need labs CBC/CMP/magnesium/phosphorus. Your amitriptyline has been increased to 25 mg at bedtime to help better control your migraine attacks. You can use 500 Mg naproxen with sumatriptan as needed for acute migraine attack. Limit naproxen use to 1000mg in 24 hour period. Naproxen is available OTC. Maintain the follow-up with your neurology as has been scheduled by your self for your migraine evaluation. You also have a rhinovirus upper respiratory infection, if you have increasing fever/increasing cough with yellow sputum, you will need evaluation for antibiotic treatment at that point. Currently continue with rest/hydration/supportive care. Take your medications as prescribed. Please make sure that you are able to get your medications today by calling your pharmacy before you leave the hospital so that your treatment continuity is not broken. Total time spent: 35 minutes. Text document was generated using [employer] voice recognition software. It may contain grammatical or spelling errors. Kindly contact undersigned for clarification of any documentation item in question. Home Health Attestation I certify that this patient is under my care and that I, or a physicians manohar kaye working with me, had a face to-face encounter that meets the home health [id number] encounter requirements with this patient. The encounter with the patient was in whole, or in part, for the following medical condition, which is the primary reason for home health care (list medical condition): I certify that, based on my findings, the following services are medically necessary home health services: My clinical findings support the need for the above services because: Further, I certify that my clinical findings support that this patient is homebound (i.e. absences from home require considerable and taxing effort and are for medical reasons or christianity services or infrequently or of short duration when for other reasons) because: Certification for Home Health Services: Based on the above findings, I certify that this patient is confined to the home and needs intermittent longterm care, physical therapy and/or speech therapy or continues to need occupational therapy. The patient is under my care, and I have initiated the establishment of the plan of care. This patient will be followed by a physician who will periodically review the plan of care. Total Time Total Time Spent Total Time Spent (In Minutes): 35 Discharge Plan Discharge Items Patient Disposition: Home - Self-Care Reason For Visit: INTRACTABLE HANSEN Discharge Diagnosis: Headache Activity: Resume your previous activity Non-emergency contact: Primary Care Provider Call non-emergency contact if: you have any medication questions Follow-up/Referrals: PCP,NO [Primary Care Provider] - Diet: Regular Addtl Attending Provider Instructions: Follow-up with your primary care physician within a week time and likely you will need labs CBC/CMP/magnesium/phosphorus. Your amitriptyline has been increased to 25 mg at bedtime to help better control your migraine attacks. You can use 500 Mg naproxen with sumatriptan as needed for acute migraine attack. Limit naproxen use to 1000mg in 24 hour period. Naproxen is available OTC. Maintain the follow-up with your neurology as has been scheduled by your self for your migraine evaluation. You also have a rhinovirus upper respiratory infection, if you have increasing fever/increasing cough with yellow sputum, you will need evaluation for antibiotic treatment at that point. Currently continue with rest/hy dration/supportive care. Take your medications as prescribed. Please make sure that you are able to get your medications today by calling your pharmacy before you leave the hospital so that your treatment continuity is not broken. Pending Studies at Discharge: No Stand-Alone Forms: My [facility], Smoking Cessation Medications and DC Order Prescriptions: New amitriptyline 25 mg Tablet 25 mg PO HS Qty: 30 0RF Continued sumatriptan succinate 50 mg tablet 100 mg PO DIRECTED Discontinued amitriptyline 10 mg tablet 10 mg PO DIRECTED Discharge Orders: Discharge Order (Routine); Ordered 07/04/24 Ordered By: Sara Burks Admission Data Admit Date/Time: 07/04/24 04:47 Attending Provider: Sara Burks Admit Provider: Markel Kennedy Primary Care Provider: PCP,NO Other Providers: Markel Kennedy
[2024-07-04] MEDS ORDERED: AMITRIPTYLINE HCL 25 MG TAB PO SCH (21:00)
== END 2024-07-04 19:14 | disposition home or self-care (01) ==
LOC: ED 23:48 → 3W 23:48

== ENCOUNTER 2024-07-19 00:08 | Observation (INO) ==
--- NOTE | 2024-07-19 00:15 | Emergency Department Note ---
History of Present Illness General Chief complaint: Headache Stated complaint: MIGRANE Time Seen by Provider: 07/19/24 00:11 History of Present Illness This 24-year-old female with a history of migraines presents the ER for severe migraine. Patient states is the worst headache of her life. Patient is well- known to this ER for frequent migraine visits. Patient denies chest pain, dyspnea, fever, chills, numbness, tingling, localized weakness. No other concerns per patient. She tried her sumatriptan without relief of symptoms. Home Medications Medication Instructions Recorded Confirmed Type amitriptyline 25 mg tablet 25 mg PO HS #30 tabs 07/04/24 07/14/24 Rx sumatriptan succinate 50 mg tablet 100 mg PO DIRECTED 07/04/24 07/14/24 History methylprednisolone 4 mg tablets in See Rx Instructions .Route 07/14/24 Rx a dose pack (Medrol (Miguel Angel)) .COMPLEX #21 ea ondansetron 4 mg disintegrating 4 - 8 mg (1 - 2 x 4 mg) PO Q8H PRN 07/14/24 Rx tablet nausea and vomiting #14 tabs Allergies Allergy/AdvReac Type Severity Reaction Status Date / Time No Known Allergies Allergy Verified 07/13/24 11:37 Past Med/Surg History Problem List (Updated 07/19/24 @ 05:01 by Kisha Mcgarry PA-C) Rhinovirus (Acute) Migraine (Acute) Medical History Migraines Surgical History No significant past surgical history Social History Smoking Status: Never smoker Second Hand Exposure: No; Do You Dip or Chew Tobacco: No; Hx Alcohol Use: No Hx Substance Use: No Preferred Language: Argentine Communication Ability: Effective Pump Room Operator Required: No Beliefs That Will Affect Care: None Current Living Situation: Parent Current Living Situation Comment: lives with mom Feels Safe at Home: Yes Assistive Devices: None Physical Exam Vital Signs Vital Signs - 24 hr 07/19/24 00:22 07/19/24 00:25 07/19/24 01:51 Temperature 36.4 C L Temperature Source Oral Pulse Rate 67 63 Pulse Rate [Apical] 65 Respiratory Rate 24 22 Respiratory Effort / Characteristics Non-Labored Blood Pressure 139/111 H Blood Pressure [Right Arm] 125/90 Blood Pressure Mean 120 Blood Pressure Mean [Right Arm] 101 Pulse Oximetry 100 97 Oxygen Delivery Method Room Air Room Air Sepsis Recent Fever Within 48 Hours No Sepsis New/Unexplained Change in Mental Status No Sepsis Action Taken by Nursing No Action Required 07/19/24 03:00 07/19/24 04:00 07/19/24 04:33 Temperature Temperature Source Pulse Rate 70 Pulse Rate [Apical] 68 76 Respiratory Rate 22 18 Respiratory Effort / Characteristics Non-Labored Blood Pressure Blood Pressure [Right Arm] 110/82 121/84 Blood Pressure Mean Blood Pressure Mean [Right Arm] 91 96 Pulse Oximetry 100 100 Oxygen Delivery Method Room Air Room Air Sepsis Recent Fever Within 48 Hours Sepsis New/Unexplained Change in Mental Status Sepsis Action Taken by Nursing VITALS: Vitals are noted on the nurse's note and reviewed by myself. Vital signs stable. GENERAL: Pleasant female, in no acute distress, nondiaphoretic, well-developed well-nourished. SKIN: Capillary reflex less than 2 seconds. HEENT: Normocephalic. PERRLA. EOMI. Nares patent. Mucous membranes moist. Neck is supple without nuchal rigidity. HEART: Regular rate and rhythm LUNGS: Clear to auscultation bilaterally without wheezes, rales or rhonchi. No retractions or accessory muscle use. ABDOMEN: Positive bowel sounds x 4. Normal tympanic percussion. Soft, nontender, without masses or organomegaly. Nuñez sign negative. No guarding or rebound tenderness. no CVA tenderness MUSCULOSKELETAL: No gross musculoskeletal defects. NEURO: Patient was alert and oriented to person place and time. No focal neurological deficits. Procedures Lumbar Puncture Time Out Performed: Yes Patient Position: upright Skin Prep: Povidone-Iodine 1% Local Anesthetic: lidocaine 1% Amount of anesthesia used (mL): 3 Spinal Needle Gauge: 20G Interspace Used: L4-L5 Fluid Initially Obtained: clear Complications: none and traumatic tap Course Administered Medications Discontinued Medications Droperidol (Droperidol 5 Mg/2 Ml Vial) 2.5 mg IV ONE STA Stop: 07/19/24 00:13 Last Admin: 07/19/24 00:17 Dose: 2.5 mg Documented By: SANDRO Magnesium Sulfate/Dextrose (Magnesium Sulfate / D5w) 1 gm in 100 mls @ 100 mls/hr IV NOW STA Stop: 07/19/24 03:19 Last Infusion: 07/19/24 04:05 Dose: Infused Documented By: Admin: 07/19/24 02:33 Dose: 100 mls/hr Documented By: ROSAMARIA Acetaminophen (Ofirmev) 1,000 mg in 100 mls @ 400 mls/hr IV NOW STA Stop: 07/19/24 02:33 Last Infusion: 07/19/24 03:33 Dose: Infused Documented By: Admin: 07/19/24 02:28 Dose: 400 mls/hr Documented By: ROSAMARIA Ceftriaxone Sodium (Rocephin) 2,000 mg in 50 mls @ 100 mls/hr IV NOW STA Stop: 07/19/24 04:37 Last Infusion: 07/19/24 04:52 Dose: Infused Documented By: Admin: 07/19/24 04:13 Dose: 100 mls/hr Documented By: ROSAMARIA Lorazepam (Lorazepam 1 Mg/1 Ml Syr Ed Inj Use) 1 mg IV ONE STA Stop: 07/19/24 02:20 Last Admin: 07/19/24 02:29 Dose: 1 mg Documented By: ROSAMARIA Medical Decision Making Medical Records Attestation: I reviewed the patient's medical records. Home Medications Current Medication List: was personally reviewed by me Laboratory Data Attestation: I reviewed the patient's lab results. 07/19/24 00:17 07/19/24 00:17 Lab Results 07/19/24 07/19/24 Range/Units 00:17 03:00 WBC 25.19 H (4.8-10.8) K/ul RBC 5.36 (4.20-5.40) M/uL Hgb 14.4 (12.0-16.0) g/dl Hct 44.3 (37.0-47.0) % MCV 82.6 (80.0-100.0) fL MCH 26.9 (25.0-34.0) pg MCHC 32.5 (32.0-36.0) g/dL RDW Std Deviation 38.4 (36.4-46.3) fL RDW Coeff of Rigo 12.8 (11.5-14.5) % Plt Count 492 H (130-400) K/uL MPV 8.5 L (9.4-12.4) fL Immature Gran % (Auto) 0.6 % Neut % (Auto) 79.6 % Lymph % (Auto) 15.0 % Chaves % (Auto) 4.7 % Eos % (Auto) 0.0 % Baso % (Auto) 0.1 % Neut # (Auto) 20.02 H (1.40-6.50) K/uL Lymph # (Auto) 3.79 H (1.20-3.40) K/uL Chaves # (Auto) 1.19 H (0.11-0.59) K/uL Eos # (Auto) 0.01 (0.00-0.50) K/uL Baso # (Auto) 0.02 (0.00-0.20) K/uL Immature Gran # (Auto) 0.16 (0.01-0.20) K/uL Sodium 139 (136-145) mmol/L Potassium 3.8 (3.5-5.1) mmol/L Chloride 100 (98-107) mmol/L Carbon Dioxide 30 (21-32) mmol/L Anion Gap 9 (3-11) BUN 10 (6-23) mg/dl Creatinine 0.71 (0.6-1.2) mg/dl Est Cr Clr Drug Dosing Not Reportable eGFR 122.45 BUN/Creatinine Ratio 14.1 (10-20) Glucose 126 H (70-99(Fasting)) mg/dl Calcium 9.7 (8.6-10.3) mg/dl Total Bilirubin 0.3 (0.2-1.0) mg/dl AST 15 (13-39) U/L ALT 7 (7-52) U/L Alkaline Phosphatase 70 (34-104) U/L Total Protein 7.4 (6.0-8.3) gm/dl Albumin 4.2 (3.4-5.0) gm/dl Globulin 3.2 (2.5-4.0) gm/dl Albumin/Globulin Ratio 1.3 (0.9-2) HCG, Qual Negative (Negative) Fluid Comment CSF Appearance Clear CSF Color Colorless Xanthrochromic No xanthochromia CSF WBC 2 (0-5) CSF RBC 358 (0-) CSF Cell Count Tube # 3 CSF Chemistry Tube # 1 CSF Glucose 78 H (40-70) mg/dl CSF Total Protein 27.6 (15-45) mg/dl CSF C.neoform/gat PCR Not Detected (NotDetected) CSF CMV DNA (PCR) Not Detected (NotDetected) CSF Enterovirus (PCR) Not Detected (NotDetected) CSF E. coli K1 (PCR) Not Detected (NotDetected) CSF H. influenzae (PCR) Not Detected (NotDetected) CSF HSV I (PCR) Not Detected (NotDetected) CSF HSV II (PCR) Not Detected (NotDetected) CSF HHV 6 (PCR) Not Detected (NotDetected) CSF L.monocytogenes PCR Not Detected (NotDetected) CSF N. meningitidis PCR Not Detected (NotDetected) CSF Parechovirus (PCR) Not Detected (NotDetected) CSF S. agalactiae (PCR) Not Detected (NotDetected) CSF S. pneumoniae (PCR) Not Detected (NotDetected) CSF VZV DNA (PCR) Not Detected (NotDetected) Lyme Disease Screen Negative (Negative) Imaging Data Attestation: I personally reviewed and interpreted this imaging study as follows: Radiologist's Impression: Head CT 07/19/24 00:13 Exam(s): CT HEAD Without Contrast EXAM: CT Head Without Intravenous Contrast CLINICAL HISTORY: Reason for exam: Headache. TECHNIQUE: Axial computed tomography images of the head/brain without intravenous contrast. CTDI is 38.84 mGy and DLP is 547.75 mGy-cm. Automated exposure control was utilized for the study. A dose lowering technique was utilized adhering to the principles of ALARA. COMPARISON: No relevant prior studies available. FINDINGS: No acute intracranial hemorrhage. No midline shift or mass effect. The territorial glasgow-white matter differentiation is maintained throughout. The ventricles and sulci are commensurate with age. The visualized orbits appear grossly unremarkable. The calvarium is intact. The visualized paranasal sinuses and mastoid air cells are grossly clear. IMPRESSION: No acute intracranial hemorrhage, midline shift, or mass effect. Electronically signed by: Abebe Barron MD 07/19/24 02:43 AM [facility] Narrative Prior records/ancillary studies reviewed. Additional history obtained from nursing. Triage Nursing notes reviewed. The patient's history was concerning for headache. Differential diagnosis: Etiologies such as migraine headache, meningitis, sinusitis, CO exposure, ICH, SAH, infection, tumor, headache, sinus thrombosis, arterial dissection, as well as others were entertained. Physical examination findings: As above. Non-focal. ER treatment provided: Droperidol IV was ordered Magnesium, Ativan, Tylenol was ordered Rocephin was given for rule out meningitis On reassessment the patient felt better. Diagnostics interpreted by me: The labs Independently Interpreted by myself revealed Leukocytosis and patient was given steroids at last ER visit and is on a steroid taper CSF was reviewed and bloody tap and no signs of bacterial meningitis Negative hCG, mild hyperglycemia without DKA Negative CSF BioFire. Negative Gram stain Imaging studies: CT was reviewed and read by radiology as above Consultation: A consultation was placed with the hospitalist. The case was discussed and diagnostics were reviewed. The patient was evaluated in the ER for further treatment. This appears to be consistent with intractable migraine. Patient did not feel comfortable going home. She is given multiple medications. LP was negative. Medicine was consulted and case is discussed. She will be evaluated for possible admission. By the evaluation outlined above emergent etiologies such as meningitis, sinusitis, CO exposure, ICH, SAH, infection, temporal arteritis, tumor, sinus thrombosis, arterial dissection, as well as others were deemed relatively unlikely. The pt informed about the findings as listed above. All questions were answered and pleased with the treatment. The chart was completed utilizing [email or web address] Speech voice recognition software. Grammatical errors, random word insertions, pronoun errors, and incomplete sentences are an occassional consequence of this system due to software limitations, ambient noise, and hardware issues. Any formal questions or concerns about the content, text, or information contained within the body of this dictation should be directly addressed to the physician assistant professor of art for clarification. Impression & Plan Migraine Discharge Plan Visit Data Chief Complaint: Headache Stated Complaint: MIGRANE ED Provider: Woody Jones ED Midlevel Provider: Kisha Mcgarry Discharge Problem: Migraine Patient Disposition: Being Evaluated by Hospitalist Condition: Good Forms Stand Alone Forms: My [facility] [employer] Prescriptions Prescriptions: No Action methylprednisolone [Medrol (Miguel Angel)] 4 mg tablets,dose pack See Rx Instructions .ROUTE .COMPLEX Qty: 21 0RF Rx Instructions: As Per Packaging ondansetron 4 mg tablet,disintegrating 4 - 8 mg PO Q8H PRN (Reason: nausea and vomiting) Qty: 14 0RF sumatriptan succinate 50 mg tablet 100 mg PO DIRECTED amitriptyline 25 mg Tablet 25 mg PO HS Qty: 30 0RF Referrals Referrals: Riri Krishna MD [Primary Care Provider] - Discharge Problem: Migraine Qualifiers: Migraine type: other Status migrainosus presence: with status migrainosus I ntractability: intractable Qualified Code(s): G43.811 - Other migraine, intractable, with status migrainosus
[2024-07-19] MEDS: DROPERIDOL 5 MG/2 ML VIAL IV STA (00:17)
[2024-07-19 00:31] LABS: Hematocrit (blood only) 44.3 % (37.0-47.0); Hemoglobin 14.4 g/dl (12.0-16.0); Mean Corpuscular Hemoglobin 26.9 pg (25.0-34.0); Mean Corpuscular Hgb Conc 32.5 g/dL (32.0-36.0); Mean Corpuscular Volume 82.6 fL (80.0-100.0); Mean Platelet Volume 8.5 fL (9.4-12.4); Platelet Count 492 K/uL (130-400); RDW Coefficient of Variation 12.8 % (11.5-14.5); RDW Standard Deviation 38.4 fL (36.4-46.3); Red Blood Count 5.36 M/uL (4.20-5.40); White Blood Count 25.19 K/ul (4.8-10.8)
[2024-07-19 00:48] LABS: Alanine Aminotransferase 7 U/L (7-52); Albumin Globulin Ratio 1.3 (0.9-2); Albumin Level 4.2 gm/dl (3.4-5.0); Alkaline Phosphatase 70 U/L (34-104); Anion Gap 9 (3-11); Aspartate Aminotransferase 15 U/L (13-39); BUN Creatinine Ratio 14.1 (10-20); Bilirubin,Total 0.3 mg/dl (0.2-1.0); Blood Urea Nitrogen 10 mg/dl (6-23); Calcium 9.7 mg/dl (8.6-10.3); Carbon Dioxide 30 mmol/L (21-32); Chloride 100 mmol/L (98-107); Globulin 3.2 gm/dl (2.5-4.0); Glucose 126 mg/dl (70-99(Fasting)); Potassium 3.8 mmol/L (3.5-5.1); Sodium 139 mmol/L (136-145); Total Protein 7.4 gm/dl (6.0-8.3)
[2024-07-19 00:59] LABS: Basophils # (auto) 0.02 K/uL (0.00-0.20); Basophils % (auto) 0.1 %; Eosinophils # (auto) 0.01 K/uL (0.00-0.50); Immature Granulocytes # (auto) 0.16 K/uL (0.01-0.20); Immature Granulocytes % (auto) 0.6 %; Lymphocytes # (auto) 3.79 K/uL (1.20-3.40); Monocytes # (auto) 1.19 K/uL (0.11-0.59); Monocytes % (auto) 4.7 %; Neutrophils # (auto) 20.02 K/uL (1.40-6.50); Neutrophils % (auto) 79.6 %
[2024-07-19 01:03] LABS: Pregnancy Test, Serum Negative (Negative)
[2024-07-19] MEDS: ACETAMINOPHEN 1,000 MG/100 ML VIAL IV STA (02:28)
[2024-07-19] MEDS: LORazepam 1 MG/1 ML SYR ED Inj Use IV STA (02:29)
[2024-07-19] MEDS: MAGNESIUM SULFATE / D5W 1 GM/100 ML BAG IV STA (02:33)
--- NOTE | 2024-07-19 02:44 | CT Scan Report ---
Exam(s): CT HEAD Without Contrast EXAM: CT Head Without Intravenous Contrast CLINICAL HISTORY: Reason for exam: Headache. TECHNIQUE: Axial computed tomography images of the head/brain without intravenous contrast. CTDI is 38.84 mGy and DLP is 547.75 mGy-cm. Automated exposure control was utilized for the study. A dose lowering technique was utilized adhering to the principles of ALARA. COMPARISON: No relevant prior studies available. FINDINGS: No acute intracranial hemorrhage. No midline shift or mass effect. The territorial glasgow-white matter differentiation is maintained throughout. The ventricles and sulci are commensurate with age. The visualized orbits appear grossly unremarkable. The calvarium is intact. The visualized paranasal sinuses and mastoid air cells are grossly clear. IMPRESSION: No acute intracranial hemorrhage, midline shift, or mass effect. Electronically signed by: Abebe Barron MD 07/19/24 02:43 AM
[2024-07-19 03:26] LABS: CSF Count Tube # 3
[2024-07-19 03:44] LABS: Total Protein CSF 27.6 mg/dl (15-45)
[2024-07-19 04:11] LABS: Appearance CSF Clear; CSF Xanthrochromic No xanthochromia; Color CSF Colorless; Red Blood Cell CSF Manual 358 (0-); White Blood Cell CSF Manual 2 (0-5)
[2024-07-19] MEDS: cefTRIAXone SODIUM 2,000 MG/50 ML BAG IV STA (04:13)
[2024-07-19 04:56] LABS: Cryptococcus neoformans/ga PCR Not Detected (NotDetected); Cytomegalovirus PCR Not Detected (NotDetected); Enterovirus PCR Not Detected (NotDetected); Escherichia coli K1 PCR Not Detected (NotDetected); Haemophilius influenzae PCR Not Detected (NotDetected); Herpes Simplex Virus 1 PCR Not Detected (NotDetected); Herpes Simplex Virus 2 PCR Not Detected (NotDetected); Human Herpes Virus 6 PCR Not Detected (NotDetected); Human Parechovirus PCR Not Detected (NotDetected); Listeria monocytogenes PCR Not Detected (NotDetected); Neisseria meningitidis PCR Not Detected (NotDetected); Streptococcus agalactiae PCR Not Detected (NotDetected); Streptococcus pneumoniae PCR Not Detected (NotDetected); Varicella Zoster Virus PCR Not Detected (NotDetected)
[2024-07-19] MEDS: SODIUM CHLORIDE 0.9% 1,000 ML IV STA (05:11)
[2024-07-19] MEDS: KETOROLAC TROMETHAMINE 15 MG/ML VIAL IV STA (05:11)
--- NOTE | 2024-07-19 05:25 | History & Physical Report ---
Date of Service July 19, 2024 Assessment & Plan (1) Migraine: Plan: Headache: Intractable migraine headache Worsening frequency and intensity of attacks the last couple of weeks Rule out brain tumor Steroid-induced hyperglycemia, hemoglobin A1c of 5.6 this month OBS GMF Analgesia Decadron if no response to Toradol Increase maintenance amitriptyline dose from 25mg to 25 mg at bedtime Brain MRI, Neurology consult, worsening migraine attacks DVT prophylaxis. SCDs Full code Patient mother requesting updates from providers. Ms. Bruna Mcgarry, contact #[phone]. Text document was generated using CE[employer] recognition software. It may contain grammatical or spelling errors. Kindly contact undersigned for clarification of any documentation item in question. History of Present Illness Chief Complaint: Worst migraine Primary Care Provider: Riri Krishna MD History obtained from patient and records. Medical history significant for migraine, bronchial asthma. Recent confinement 2 weeks ago for intractable migraine headache precipitated by entero/rhinovirus infection. Headache symptoms improved with steroid an Imitrex Rx. Patient discharged on higher dose of amitriptyline Rx. Outpatient Neurology evaluation contemplated by PCP on follow-up visit. Patient had recurrence of migraine headache symptoms shortly after discharge from the hospital. [facility] ER visit 5 days ago with subsequent discharge. Last night, patient had recurrence of more intense migraine attack. Bright spots with achy left-sided headache symptoms. Some nausea and vomiting. No fever, no chills, no chest pain, no SOB, no abdominal pain. Denies unusual stress at home. Intractable discomfort of the ER. Intractable discomfort at the ER. Medical History as above Surgical History : None Family History : Bronchial asthma Personal/Social history : Non-smoker, no EtOH intake, unemployed Allergies Allergy/AdvReac Type Severity Reaction Status Date / Time No Known Allergies Allergy Verified 07/13/24 11:37 Home Medications Medication Instructions Recorded Confirmed Type amitriptyline 25 mg tablet 25 mg PO HS #30 tabs 07/04/24 07/19/24 Rx sumatriptan succinate 50 mg tablet 100 mg PO DIRECTED 07/04/24 07/19/24 History ondansetron 4 mg disintegrating 4 - 8 mg (1 - 2 x 4 mg) PO Q8H PRN 07/14/24 07/19/24 Rx tablet nausea and vomiting #14 tabs Past Med/Surg History Problem List (Updated 07/19/24 @ 05:01 by Kisha Mcgarry PA-C) Rhinovirus (Acute) Migraine (Acute) Medical History Migraines Surgical History No significant past surgical history Social History Smoking Status: Never smoker Second Hand Exposure: No; Do You Dip or Chew Tobacco: No; Hx Alcohol Use: No Hx Substance Use: No Preferred Language: Tristanian Communication Ability: Effective Pharmaceutical Detailer Required: No Beliefs That Will Affect Care: None Current Living Situation: Parent Current Living Situation Comment: lives with mom Feels Safe at Home: Yes Assistive Devices: None Review of Systems Review of Systems: As per HPI, all other systems reviewed and negative Physical Exam Physical Exam: GENERAL: uncomfortable, no respiratory distress SKIN: Normal color, warm HEENT: [place] palpebral conjunctivae, no ptosis, dry buccal mucosa NECK : Supple, no tenderness CHEST : CTA, no tenderness HEART : RRR, no obvious murmurs ABDOMEN: Some distention, nontender EXTREMITIES : Minimal LE swelling, no LE tenderness, no other conspicuous deformities noted NEUROLOGIC : Coherent, no facial asymmetry, no other gross focality Results & Data Results & Data Vital Signs (Past 12 Hours) Vital Signs Temp Pulse Pulse Resp BP BP Pulse Ox 07/19/24 05:00 69 18 138/96 95 07/19/24 04:33 70 07/19/24 04:00 76 18 121/84 100 07/19/24 03:00 68 22 110/82 100 07/19/24 01:51 65 22 125/90 97 07/19/24 00:25 63 07/19/24 00:22 36.4 C L 67 24 139/111 H 100 O2 Del Method 07/19/24 05:00 Room Air 07/19/24 04:33 07/19/24 04:00 Room Air 07/19/24 03:00 Room Air 07/19/24 01:51 Room Air 07/19/24 00:25 07/19/24 00:22 Room Air Laboratory Results Laboratory Results WBC 25.19 K/ul (4.8-10.8) H 07/19/24 00:17 RBC 5.36 M/uL (4.20-5.40) 07/19/24 00:17 Hgb 14.4 g/dl (12.0-16.0) 07/19/24 00:17 Hct 44.3 % (37.0-47.0) 07/19/24 00:17 MCV 82.6 fL (80.0-100.0) 07/19/24 00:17 MCH 26.9 pg (25.0-34.0) 07/19/24 00:17 MCHC 32.5 g/dL (32.0-36.0) 07/19/24 00:17 RDW Std Deviation 38.4 fL (36.4-46.3) 07/19/24 00:17 RDW Coeff of Rigo 12.8 % (11.5-14.5) 07/19/24 00:17 Plt Count 492 K/uL (130-400) H 07/19/24 00:17 MPV 8.5 fL (9.4-12.4) L 07/19/24 00:17 Immature Gran % (Auto) 0.6 % 07/19/24 00:17 Neut % (Auto) 79.6 % 07/19/24 00:17 Lymph % (Auto) 15.0 % 07/19/24 00:17 [place] % (Auto) 4.7 % 07/19/24 00:17 Eos % (Auto) 0.0 % 07/19/24 00:17 Baso % (Auto) 0.1 % 07/19/24 00:17 Neut # (Auto) 20.02 K/uL (1.40-6.50) H 07/19/24 00:17 Lymph # (Auto) 3.79 K/uL (1.20-3.40) H 07/19/24 00:17 [place] # (Auto) 1.19 K/uL (0.11-0.59) H 07/19/24 00:17 Eos # (Auto) 0.01 K/uL (0.00-0.50) 07/19/24 00:17 Baso # (Auto) 0.02 K/uL (0.00-0.20) 07/19/24 00:17 Immature Gran # (Auto) 0.16 K/uL (0.01-0.20) 07/19/24 00:17 Sodium 139 mmol/L (136-145) 07/19/24 00:17 Potassium 3.8 mmol/L (3.5-5.1) 07/19/24 00:17 Chloride 100 mmol/L (98-107) 07/19/24 00:17 Carbon Dioxide 30 mmol/L (21-32) 07/19/24 00:17 Anion Gap 9 (3-11) 07/19/24 00:17 BUN 10 mg/dl (6-23) 07/19/24 00:17 Creatinine 0.71 mg/dl (0.6-1.2) 07/19/24 00:17 Est Cr Clr Drug Dosing Not Reportable 07/19/24 00:17 eGFR 122.45 07/19/24 00:17 BUN/Creatinine Ratio 14.1 (10-20) 07/19/24 00:17 Glucose 126 mg/dl (70-99(Fasting)) H 07/19/24 00:17 Calcium 9.7 mg/dl (8.6-10.3) 07/19/24 00:17 Total Bilirubin 0.3 mg/dl (0.2-1.0) 07/19/24 00:17 AST 15 U/L (13-39) 07/19/24 00:17 ALT 7 U/L (7-52) 07/19/24 00:17 Alkaline Phosphatase 70 U/L (34-104) 07/19/24 00:17 Total Protein 7.4 gm/dl (6.0-8.3) 07/19/24 00:17 Albumin 4.2 gm/dl (3.4-5.0) 07/19/24 00:17 Globulin 3.2 gm/dl (2.5-4.0) 07/19/24 00:17 Albumin/Globulin Ratio 1.3 (0.9-2) 07/19/24 00:17 HCG, Qual Negative (Negative) 07/19/24 00:17 Fluid Comment 07/19/24 03:00 CSF Appearance Clear 07/19/24 03:00 CSF Color Colorless 07/19/24 03:00 Xanthrochromic No xanthochromia 07/19/24 03:00 CSF WBC 2 (0-5) 07/19/24 03:00 CSF RBC 358 (0-) 07/19/24 03:00 CSF Cell Count Tube # 3 07/19/24 03:00 CSF Chemistry Tube # 1 07/19/24 03:00 CSF Glucose 78 mg/dl (40-70) H 07/19/24 03:00 CSF Total Protein 27.6 mg/dl (15-45) 07/19/24 03:00 CSF C.neoform/gat PCR Not Detected (NotDetected) 07/19/24 03:00 CSF CMV DNA (PCR) Not Detected (NotDetected) 07/19/24 03:00 CSF Enterovirus (PCR) Not Detected (NotDetected) 07/19/24 03:00 CSF E. coli K1 (PCR) Not Detected (NotDetected) 07/19/24 03:00 CSF H. influenzae (PCR) Not Detected (NotDetected) 07/19/24 03:00 CSF HSV I (PCR) Not Detected (NotDetected) 07/19/24 03:00 CSF HSV II (PCR) Not Detected (NotDetected) 07/19/24 03:00 CSF HHV 6 (PCR) Not Detected (NotDetected) 07/19/24 03:00 CSF L.monocytogenes PCR Not Detected (NotDetected) 07/19/24 03:00 CSF N. meningitidis PCR Not Detected (NotDetected) 07/19/24 03:00 CSF Parechovirus (PCR) Not Detected (NotDetected) 07/19/24 03:00 CSF S. agalactiae (PCR) Not Detected (NotDetected) 07/19/24 03:00 CSF S. pneumoniae (PCR) Not Detected (NotDetected) 07/19/24 03:00 CSF VZV DNA (PCR) Not Detected (NotDetected) 07/19/24 03:00 Lyme Disease Screen Negative (Negative) 07/19/24 00:[address] 07/19/24 00:13 Exam(s): CT HEAD Without Contrast EXAM: CT Head Without Intravenous Contrast CLINICAL HISTORY: Reason for exam: Headache. TECHNIQUE: Axial computed tomography images of the head/brain without intravenous contrast. CTDI is 38.84 mGy and DLP is 547.75 mGy-cm. Automated exposure control was utilized for the study. A dose lowering technique was utilized adhering to the principles of ALARA. COMPARISON: No relevant prior studies available. FINDINGS: No acute intracranial hemorrhage. No midline shift or mass effect. The territorial glasgow-white matter differentiation is maintained throughout. The ventricles and sulci are commensurate with age. The visualized orbits appear grossly unremarkable. The calvarium is intact. The visualized paranasal sinuses and mastoid air cells are grossly clear. IMPRESSION: No acute intracranial hemorrhage, midline shift, or mass effect. Electronically signed by: Abebe Barron MD 07/19/24 02:43 AM (1) Migraine Intractability: intractable Migraine type: other Status migrainosus presence: with status migrainosus Qualified Code(s): G43.811 - Other migraine, intractable, with status migrainosus
[2024-07-19] MEDS ORDERED: ACETAMINOPHEN 325 MG TAB PO PRN (05:27)
[2024-07-19] MEDS ORDERED: LORazepam 0.5 MG TAB PO PRN (05:27)
[2024-07-19] MEDS ORDERED: PROMETHAZINE 12.5 MG/50.5 ML BAG IV PRN (05:27)
[2024-07-19] MEDS ORDERED: oxyCODONE HCL IR 5 MG TAB (IMMEDIATE RELEASE) PO PRN (05:28)
[2024-07-19] MEDS: GADOBUTROL 65ML VIAL IV ONE (07:29)
--- NOTE | 2024-07-19 08:26 | Magnetic Resonance Report ---
MRI OF THE BRAIN WITHOUT AND WITH IV CONTRAST CLINICAL HISTORY: Headaches. COMPARISON STUDY: Head CT July 04, [address] performed earlier today. CTA of the head May. TECHNIQUE: Utilizing a 1.5 Luz magnet and dedicated coil, multiplanar, multiecho imaging of the br ain was performed pre and postcontrast administration. IV administration of 6 mL of Gadavist contras t was uneventful. FINDINGS: There are no foci of restricted diffusion to suggest acute infarct. No acute intracranial h emorrhage, midline shift or mass effect is present. Brain volume is normal. Ventricular system is nor mal. Basal cisterns are patent. There are no extra-axial collections. Flow-voids for the major intrac ranial vessels are present. There is no intracranial mass or pathologic enhancement. The pituitary is prominent but within normal limits given the patient's age and sex. No parenchymal signal abnormalit ies are identified. There is no orbital abnormality. There is no evidence for sinusitis. No mastoid f luid is present. IMPRESSION: Unremarkable MRI of the brain. ACT 112: Negative or not required by law. Electronically signed by: Markus Vallecillo M.D. 07/19/2024 8:25 AM
--- NOTE | 2024-07-19 14:01 | Hospitalist Progress Note ---
Date of Service July 19, 2024 Assessment & Plan (1) Migraine: Plan: Intractable migraine headache Worsening frequency and intensity of attacks the last couple of weeks --MRI Brain:Unremarkable MRI of the brain. --S/P LP: not contributory --CSF Culture pending -- Lyme CSF PCR pending Uses sumatriptan as needed Amitriptyline dose increased to 50 mg at bedtime Neurology consulted Consider magnesium oxide, vitamin B2 for prophylaxis Leukocytosis No obvious source of infection Urinalysis pending Check chest x-ray Steroid-induced hyperglycemia HbA1C 5.6 DVT Px: SCDs Code Status Full code Admission and Anticipated Discharge Date Admission Date: July 19, 2024 Subjective Patient is seen and examined at bedside Headache much improved Offers no other complaints today Denies any nausea, vomiting, chest pain, dyspnea, dizziness Review of Systems Review of Systems: All systems reviewed & are unremarkable except as noted in Subjective Physical Exam Physical Exam: Physical Exam: Vitals signs as noted above General Appearance:Moderately built and nourished, no apparent distress Head: normocephalic, Atraumatic Eyes: normal inspection, EOMI Neck: supple, Trachea midline Respiratory/Chest: Normal breath sounds, CTA, No accessory muscle use Cardiovascular: S1, S2, No murmur Abdomen/GI:Soft, Non tender, Bowel sounds present Extremities/Musculoskeletal:normal inspection, no edema Neurologic/Psych:AAOX3, grossly no focal neurological deficits Skin: normal color, warm Results & Data Results & Data Vital Signs (Past 12 Hours) Vital Signs Temp Pulse Pulse Pulse Resp BP BP 07/19/24 13:02 36.6 C 99 H 18 128/90 07/19/24 12:36 103 H 18 116/82 07/19/24 10:00 77 17 108/82 07/19/24 08:35 74 07/19/24 08:30 86 18 126/88 07/19/24 08:00 82 17 124/88 07/19/24 06:00 68 17 129/86 07/19/24 05:00 69 18 138/96 07/19/24 04:33 70 07/19/24 04:00 76 18 121/84 07/19/24 03:00 68 22 110/82 Pulse Ox O2 Del Method 07/19/24 13:02 99 Room Air 07/19/24 12:36 100 07/19/24 10:00 98 Room Air 07/19/24 08:35 07/19/24 08:30 97 Room Air 07/19/24 08:00 98 Room Air 07/19/24 06:00 99 Room Air 07/19/24 05:00 95 Room Air 07/19/24 04:33 07/19/24 04:00 100 Room Air 07/19/24 03:00 100 Room Air Laboratory Results Short CBC 07/19/24 Range/Units 00:17 WBC 25.19 H (4.8-10.8) K/ul Hgb 14.4 (12.0-16.0) g/dl Hct 44.3 (37.0-47.0) % Plt Count 492 H (130-400) K/uL BMP 07/19/24 00:17 Sodium 139 Potassium 3.8 Chloride 100 Carbon Dioxide 30 BUN 10 Creatinine 0.71 Glucose 126 H Calcium 9.7 Liver Function 07/19/24 Range/Units 00:17 Total Bilirubin 0.3 (0.2-1.0) mg/dl AST 15 (13-39) U/L ALT 7 (7-52) U/L Alkaline Phosphatase 70 (34-104) U/L Albumin 4.2 (3.4-5.0) gm/dl (1) Migraine Intractability: intractable Migraine type: other Status migrainosus presence: with status migrainosus Qualified Code(s): G43.811 - Other migraine, intractable, with status migrainosus
--- NOTE | 2024-07-19 14:41 | XRay Report ---
XR chest 1V portable CLINICAL HISTORY: Leukocytosis COMPARISON STUDY: No previous studies for comparison. FINDINGS: Lung volumes are normal. Lungs are clear. There is no pneumothorax or pleural effusion. Car diac size is normal. Mediastinal contours are normal. There is no evidence for pulmonary edema. IMPRESSION: No acute cardiopulmonary findings. ACT 112: Negative or not required by law. Electronically signed by: Markus Vallecillo M.D. 07/19/2024 2:40 PM
--- NOTE | 2024-07-19 15:17 | Neurology Consultation ---
Date of Consultation July 19, 2024 Assessment & Plan (1) Intractable migraine without aura and with status migrainosus: Her headaches are compatible with migraines without aura. CT a with no abnormality to explain headaches. MRI is negative as well. LP is not suggestive of any infection. No documented opening pressure but no radiological evidence of increased intracranial hypertension Lyme titer is negative Plan -Obtain an MRV of the head to rule out venous sinus thrombosis Stop amitriptyline, try Topamax 25 mg at bedtime for 1 week then increase to 50 mg at bedtime on week 2. The patient was informed of the risk with Topamax including word finding difficulty, the need for hydration, she was warned against as it is considered to be category C in , patient reported that she has no chances of getting in the near future. -Explained to the patient that she should have protective measures. -For migraine abortive treatment can use naproxen 500 mg in addition to Benadry 50 mg and baclofen 5 mg. Magnesium 400 mg twice daily in addition to riboflavin 400 mg daily Will need to follow-up with outpatient neurology l Telehealth Consultation Telehealth Information Telehealth Information: I performed this visit using a real-time telehealth connection between my location and the patients location ([facility]). After connecting through interactive tele-video, patient was identified by name and date of and/or wristband check.Patient (or authorized healthcare veterans contact representative) was informed that this was a telemedicine visit and it was being conducted confidentially over secure lines. My office door was closed and no one else was present in the room with me.Patient (or authorized healthcare veterans contact representative) provided consent to proceed with the visit, expressed an understanding of privacy and security of the telemedicine visit, and gave permission to have a hospital veterans contact representative in the room in order to assist with the visit and to conduct portions of the visit, as needed. I informed the patient (or authorized healthcare veterans contact representative) that I reviewed their record and presented the opportunity for them to ask any questions regarding the visit today. The patient agreed to participate. History of Present Illness Reason for Consultation: mari Requesting Physician: Omid Marcos MD Attending Physician: Omid Marcos MD History of Present Illness 24-year-old female patient with known prior history who presents reporting migraine headaches that has been ongoing for more than a year. Reports that she has had occasional headaches as a teenager but nothing that severe. Over the past year she has had severe headaches that usually start in the frontal area, propagate to become bilateral frontal, throbbing in nature, can reach 10/10 intensity, associated with photophobia sonophobia. Spreads gradually to involve the whole head, sometimes is associated with neck stiffness. Denies any numbness or weakness associated with it. Reports occasional blurry vision but no special characteristics of her vision. She has been tried on amitriptyline 10 mg that was increased to 25 mg about 2 weeks ago and now with plans to increase it to 250 mg at bedtime. She reports that amitriptyline makes her tired. Has tried sumatriptan in the past that did not help. Rizatriptan does not seem to work either. Denies any chances of her getting or any plans for . Allergies Allergy/AdvReac Type Severity Reaction Status Date / Time No Known Allergies Allergy Verified 07/13/24 11:37 Home Medications Medication Instructions Recorded Confirmed Type amitriptyline 25 mg tablet 25 mg PO HS #30 tabs 07/04/24 07/19/24 Rx sumatriptan succinate 50 mg tablet 100 mg PO DIRECTED 07/04/24 07/19/24 History ondansetron 4 mg disintegrating 4 - 8 mg (1 - 2 x 4 mg) PO Q8H PRN 07/14/24 07/19/24 Rx tablet nausea and vomiting #14 tabs Patient History Medical History Migraines Surgical History No significant past surgical history Social History Smoking Status: Never smoker Second Hand Exposure: No; Do You Dip or Chew Tobacco: No; Tobacco Cessation Education Requested by Patient: No Hx Alcohol Use: No Hx Substance Use: No Preferred Language: Norwegian Communication Ability: Effective Repairer Shoe Sticks Required: No Beliefs That Will Affect Care: None Current Living Situation: Parent Current Living Situation Comment: lives with mom Other Information That Helps Us Care for You: No Feels Safe at Home: Yes Safety Concerns: Feels Safe At This Time Assistive Devices: None Review of Systems Constitutional: Patient denies weight loss, fever, chills, and night sweats Eyes: Patient denies change in vision, tearing, pain, and redness ENT: Patient denies pain, bleeding, rhinorrhea, and dysphagia Cardiovascular: Patient denies chest pain, palpitation, dyspnea at rest, and dyspnea with exertion Respiratory: Patient denies shortness of breath, cough, wheezing, and productive cough GI: Patient denies reflux, pain, constipation, and diarrhea Skin: Patient denies rash, dryness, and itching Allergies/Immune System: Patient denies rhinorrhea, seasonal allergies, reaction to current MEDS, and joint swelling Endocrine: Patient denies weight loss, weight gain, temperature intolerance, and excessive thirst Neurological: All negative unless mentioned in the HPI Physical Exam General Constitutional: Appearance normally developed Head and face: normocephalic and atraumatic Eyes: no ptosis, no anisocoria, and no dysconjugate gaze Respiratory: normal effort Cardiovascular: regular rhythm and regular rate Abdomen: non distended Skin: no rashes, lesions, or ulcers noted Psychiatric: normal judgement and insight, normal mood, and normal affect NEUROLOGIC EXAMINATION: Mental Status:alert, oriented to time, place, person, normal recent memory, normal remote memory, normal attention span, normal concentration, normal language and normal fund of knowledge Cranial Nerves: CN 2 - no visual defect on confrontation and pupils round, equal, reactive to light CN 3, 4, 6 - extra-ocular movements intact and no nystagmus CN 5 - facial sensation intact CN 7 - no facial asymmetry CN 8 - intact hearing CN 9, 10 - palate symmetric, normal gag CN 11 - good shoulder shrug CN 12 - tongue midline MOTOR: Strength was at least antigravity throughout, Pronator drift was absent and There were no abnormal movements SENSATION: intact and symmetric to pinprick, light touch, vibration and joint position GAIT: stable, no ataxia and can perform tandem walking COORDINATION: no ataxia with finger to nose testing and heel to michaels testing REFLEXES: cannot assess over telemedicine Results & Data Vital Signs (Past 12 Hours) Vital Signs Temp Pulse Pulse Pulse Resp BP BP 07/19/24 13:02 36.6 C 99 H 18 128/90 07/19/24 12:36 103 H 18 116/82 07/19/24 10:00 77 17 108/82 07/19/24 08:35 74 07/19/24 08:30 86 18 126/88 07/19/24 08:00 82 17 124/88 07/19/24 06:00 68 17 129/86 07/19/24 05:00 69 18 138/96 07/19/24 04:33 70 07/19/24 04:00 76 18 121/84 Pulse Ox O2 Del Method 07/19/24 13:02 99 Room Air 07/19/24 12:36 100 07/19/24 10:00 98 Room Air 07/19/24 08:35 07/19/24 08:30 97 Room Air 07/19/24 08:00 98 Room Air 07/19/24 06:00 99 Room Air 07/19/24 05:00 95 Room Air 07/19/24 04:33 07/19/24 04:00 100 Room Air Laboratory Results Laboratory Results - last 24 hr 07/19/24 07/19/24 07/19/24 00:17 03:00 Unknown WBC 25.19 H RBC 5.36 Hgb 14.4 Hct 44.3 MCV 82.6 MCH 26.9 MCHC 32.5 RDW Std Deviation 38.4 RDW Coeff of Rigo 12.8 Plt Count 492 H MPV 8.5 L Immature Gran % (Auto) 0.6 Neut % (Auto) 79.6 Lymph % (Auto) 15.0 [place] % (Auto) 4.7 Eos % (Auto) 0.0 Baso % (Auto) 0.1 Neut # (Auto) 20.02 H Lymph # (Auto) 3.79 H [place] # (Auto) 1.19 H Eos # (Auto) 0.01 Baso # (Auto) 0.02 Immature Gran # (Auto) 0.16 Sodium 139 Potassium 3.8 Chloride 100 Carbon Dioxide 30 Anion Gap 9 BUN 10 Creatinine 0.71 Est Cr Clr Drug Dosing Not Reportable eGFR 122.45 BUN/Creatinine Ratio 14.1 Glucose 126 H Calcium 9.7 Magnesium 2.0 Total Bilirubin 0.3 AST 15 ALT 7 Alkaline Phosphatase 70 Total Protein 7.4 Albumin 4.2 Globulin 3.2 Albumin/Globulin Ratio 1.3 HCG, Qual Negative Urine Color Pending Urine Appearance Pending Urine pH Pending Ur Specific [place] Pending Urine Protein Pending Urine Glucose (UA) Pending Urine Ketones Pending Urine Blood Pending Urine Nitrite Pending Urine Bilirubin Pending Urine Urobilinogen Pending Ur Leukocyte Esterase Pending Fld Lyme DNA (PCR) Pending Fluid Comment CSF Appearance Clear CSF Color Colorless Xanthrochromic No xanthochromia CSF WBC 2 CSF RBC 358 CSF Cell Count Tube # 3 CSF Chemistry Tube # 1 CSF Glucose 78 H CSF Total Protein 27.6 CSF C.neoform/gat PCR Not Detected CSF CMV DNA (PCR) Not Detected CSF Enterovirus (PCR) Not Detected CSF E. coli K1 (PCR) Not Detected CSF H. influenzae (PCR) Not Detected CSF HSV I (PCR) Not Detected CSF HSV II (PCR) Not Detected CSF HHV 6 (PCR) Not Detected CSF L.monocytogenes PCR Not Detected CSF N. meningitidis PCR Not Detected CSF Parechovirus (PCR) Not Detected CSF S. agalactiae (PCR) Not Detected CSF S. pneumoniae (PCR) Not Detected CSF VZV DNA (PCR) Not Detected Lyme Specimen Source Pending Lyme Disease Screen Negative Diagnostic Findings Head CT 07/19/24 00:13 Exam(s): CT HEAD Without Contrast EXAM: CT Head Without Intravenous Contrast CLINICAL HISTORY: Reason for exam: Headache. TECHNIQUE: Axial computed tomography images of the head/brain without intravenous contrast. CTDI is 38.84 mGy and DLP is 547.75 mGy-cm. Automated exposure control was utilized for the study. A dose lowering technique was utilized adhering to the principles of ALARA. COMPARISON: No relevant prior studies available. FINDINGS: No acute intracranial hemorrhage. No midline shift or mass effect. The territorial glasgow-white matter differentiation is maintained throughout. The ventricles and sulci are commensurate with age. The visualized orbits appear grossly unremarkable. The calvarium is intact. The visualized paranasal sinuses and mastoid air cells are grossly clear. IMPRESSION: No acute intracranial hemorrhage, midline shift, or mass effect. Electronically signed by: Abebe Barron MD 07/19/24 02:43 AM Brain MRI 07/19/24 05:26 MRI OF THE BRAIN WITHOUT AND WITH IV CONTRAST CLINICAL HISTORY: Headaches. COMPARISON STUDY: Head CT July 04, [address] performed earlier today. CTA of the head June 02, 2024. TECHNIQUE: Utilizing a 1.5 Luz magnet and dedicated coil, multiplanar, multiecho imaging of the brain was performed pre and postcontrast administration. IV administration of 6 mL of Gadavist contrast was uneventful. FINDINGS: There are no foci of restricted diffusion to suggest acute infarct. No acute intracranial hemorrhage, midline shift or mass effect is present. Brain volume is normal. Ventricular system is normal. Basal cisterns are patent. There are no extra-axial collections. Flow-voids for the major intracranial vessels are present. There is no intracranial mass or pathologic enhancement. The pituitary is prominent but within normal limits given the patient's age and sex. No parenchymal signal abnormalities are identified. There is no orbital abnormality. There is no evidence for sinusitis. No mastoid fluid is present. IMPRESSION: Unremarkable MRI of the brain. ACT 112: Negative or not required by law. Electronically signed by: Markus Vallecillo M.D. 07/19/2024 8:25 AM Chest X-Ray 07/19/24 14:00 XR chest 1V portable CLINICAL HISTORY: Leukocytosis COMPARISON STUDY: No previous studies for comparison. FINDINGS: Lung volumes are normal. Lungs are clear. There is no pneumothorax or pleural effusion. Cardiac size is normal. Mediastinal contours are normal. There is no evidence for pulmonary edema. IMPRESSION: No acute cardiopulmonary findings. ACT 112: Negative or not required by law. Electronically signed by: Markus Vallecillo M.D. 07/19/2024 2:40 PM Medications Administered Home Medications Medication Instructions Recorded Confirmed Last Taken amitriptyline 25 mg tablet 25 mg PO HS #30 tabs 07/04/24 07/19/24 Unknown sumatriptan succinate 50 mg tablet 100 mg PO DIRECTED 07/04/24 07/19/24 Unknown ondansetron 4 mg disintegrating 4 - 8 mg (1 - 2 x 4 mg) PO Q8H PRN 07/14/24 07/19/24 Unknown tablet nausea and vomiting #14 tabs Active Medications Generic Name Dose Route Start Last Admin Trade Name Freq PRN Reason Stop Dose Admin Sodium Chloride 1,000 mls @ 75 mls/hr 07/19/24 05:07 07/19/24 05:11 Nss IV 07/19/24 18:26 75 mls/hr .[id number] STA Administration
--- OUTSIDE RECORDS SUMMARY | 2024-07-19 15:25 | External Medical Summary | Summary of Care ---
Author Name Unknown Organization [facility] Address [address] [place] [address] Phone [phone] Care Team Providers Care Farm Equipment Engineer Name Role Phone Riri Krishna MD Primary Care Provider [phone] Reason for Visit * Reason Comments Hospital Follow-Up Encounter Details Date Type Department Care Team (Late st Contact Info) Description 07/16/2024 9:00 AM EDT Office Visit Family Practice [facility] [address] [facility] [place] [address] Riri Krishna MD [address] [place] [address] Hospital discharge follow-up*; Intractable migraine with aura with status migrainosus; Rhinovirus infection Allergies No known active allergiesdocumented as of this encounter (statuses as of 07/16/2024) Medications Medication Sig Dispensed Refills Start Date End Date Status Baclofen 10 MG Oral Tablet (Lioresal) Take 1 Tablet by mouth in the morning and 1 Tablet before bedtime. 20 Tablet 08/03/2023 Active Ondansetron 8 MG Oral Tablet Disintegrating (Zofran)Indications :Intractable migraine with aura with status migrainosus Place 1 Tablet on tongue every 8 hours as needed for Nausea. dissolve on tongue. 30 Tablet 5 06/06/2024 Active methylPREDNISolone 4 MG Oral Tablet Therapy Pack (Medrol Dosepack) Take 1 Tablet by mouth in the morning. 07/14/2024 Active Amitriptyline HCl 25 MG Oral Tablet (Elavil) Take 1 Tablet by mouth at bedtime. Active Rizatriptan Benzoate 10 MG Oral Tablet (Maxalt)Indications :Intractable migraine with aura with status migrainosus Take 1 Tablet by mouth as needed for Migraine. at onset of headache, may repeat every 2 hours up to 2 times. Up to 3 tablets in 24 hours 20 Tablet 3 07/16/2024 Active Propranolol HCl ER 60 MG Oral Capsule Extended Release 24 Hour (Inderal LA)Indications:Intr actable migraine with aura with status migrainosus Take 1 Capsule by mouth in the morning. 30 Capsule 5 08/03/2023 4 Discontinued Amitriptyline HCl 10 MG Oral Tablet (Elavil)Indications :Intractable migraine with aura with status migrainosus Take 1 Tablet by mouth at bedtime. 30 Tablet 5 06/06/2024 4 Discontinued predniSONE 10 MG Oral Tablet (Deltasone)Indicati ons:Intractable migraine with aura with status migrainosus Take 5 tabs for 2 days, 4 tabs for 2 days, 3 tabs for 2 days, 2 tabs for 2 days 1 tab for 2 days 30 Tablet 06/06/2024 4 Discontinued SUMAtriptan Succinate 50 MG Oral Tablet (Imitrex)Indication s:Intractable migraine with aura with status migrainosus Take 2 tablets at onset of migraine and one tablet every 2 hours as needed, not more than 5 tablets in 24 hours 6 Tablet 5 06/06/2024 4 Discontinued documented as of this encounter (statuses as of 07/16/2024) Active Problems Problem Noted Date Diagnosed Date Migraine 08/03/2023 documented as of this encounter (statuses as of 07/16/2024) Immunizations Name Administration Dates Next Due DTaP [...] Date Smoking Tobacco: Never Smokeless Tobacco: Never Alcohol Use Standard Drinks/Week Comments Yes 0 [...] No 08/03/2023 Does the household have a re gular source of income? (Household - for ages [...] 18 years and over) Not on file 3 Are you (or your family) wendy eless [...] Sign Reading Time Taken Comments Blood Pressure 108/82 07/16/2024 8:52 AM EDT Pulse 98 07/16/2024 8:52 AM EDT Temperature 37 C (98.6 F) 07/16/2024 8:52 AM EDT Respiratory Rate 16 07/16/2024 8:52 AM EDT Oxygen Saturation - - Inhaled Oxygen Concentration - - Weight 62.1 kg (137 lb) 07/16/2024 8:52 AM EDT Height 150.4 cm (4' 11.21") 07/16/2024 8:52 AM E DT Body Mass Index 27.47 07/16/2024 8:52 AM EDT documented in this encounter Progress Notes * Riri Krishna MD - 07/16/2024 8:41 AM EDT Subjective Chief Complaint Patient presents with Hospital Follow-Up HPI: Karina Mcgarry is a 24 year old female. The following issues were addressed today: Hospital course: Patient admitted to [facility] with intractable migraine headache possibly precipitated by entero/rhinovirus infection. CT head was unremarkable. Treated with Decadron and Imitrex. Maintenance dose of amitriptyline was increased from 10 mg to 25 mg at bedtime. At time of discharge patient reported resolution of her headache and denied any nausea and vomiting. Tests/studies pending at time of discharge: None Home/outpatient services ordered: None Course since hospitalization: History of Present Illness The patient, recently hospitalized due to a severe migraine, tested positive for rhinovirus during her stay. She reported no significant respiratory symptoms, apart from a stuffy nose. The patient was treated with a cocktail of migraine medications and Benadryl, and was discharged after one night. Has not had a migraine since discharge. The patient has a history of migraines for approximately a year and has been on amitriptyline, which was recently increased from 10mg to 25mg. She also previously tried propranolol, which was ineffective. When experiencing a migraine, the patient takes sumatriptan, which has not been helpful. She also reported experiencing an aura, characterized by ringing in the ears and light sensitivity that precedes the headache. In addition to the amitriptyline, the patient is currently on a steroid pack, which was started during her last hospital visit. She has no other known medical conditions and takes no other medications. She has received a flu shot this year. The patient has an upcoming appointment with neurology to explore other options for migraine management. Review of Systems: See HPI Objective BP 108/82 | Pulse 98 | Temp 37 C (98.6 F) | Resp 16 | Ht 1.504 m (4' 11.21") | Wt 62.1 kg (137 lb) | BMI 27.47 kg/m | BSA 1.61 m Wt Readings from Last 3 Encounters: 07/16/24 62.1 kg (137 lb) 06/06/24 58.3 kg (128 lb 9.6 oz) 08/03/23 51.7 kg (114 lb) BP Readings from Last 3 Encounters: 07/16/24 108/82 06/06/24 102/70 08/03/23 112/78 General: Well-appearing, no acute distress Cardiovascular: Regular rate and rhythm, no murmur Respiratory: Good respiratory effort, breath sounds equal and clear to auscultation bilaterally Neurological: Alert and oriented, no focal deficits noted Psychiatric: Appropriate mood and affect Assessment & Plan 1. Hospital discharge follow-up - DISCH MED RECON CUR MED LIS 2. Intractable migraine with aura with status migrainosus Recent severe migraine associated with rhinovirus infection. Amitriptyline dose increased to 25mg by ER. Continue Amitriptyline 25mg daily. Replace Sumatriptan with Rizatriptan for acute migraines. Neurology consult upcoming for further management. Avoid estrogen-containing medications due to increased stroke risk with migraines with aura. - Rizatriptan Benzoate 10 MG Oral Tablet (Maxalt); Take 1 Tablet by mouth as needed for Migraine. at onset of headache, may repeat every 2 hours up to 2 times. Up to 3 tablets in 24 hours Dispense: 20 Tablet; Refill: 3 3. Rhinovirus infection Currently asymptomatic. No further action required. Follow Up: Return for Pap smear when available. This note was electronically signed by Riri Krishna MD documented in this encounter Nursing Notes * Yeny You LPN - 07/16/2024 8:52 AM EDT The patient has been properly identified by confirmation of name and date of . Chief Complaint Patient presents with Hospital Follow-Up documented in this encounter Plan of Treatment Upcoming Encounters Date Type Department Care Team (Late st Contact Info) Description 07/26/2024 12:30 PM EDT [address] [place] [address] Elena Valerio PA-C [address] [address] 08/06/2024 5:20 PM EST Office Visit Family Practice [facility] [place] [address] [facility] [place] [address] Riri Krishna MD [address] [facility] [place] [address] Health Maintenance Due Date Last Done Comments [...] as of this encounter Visit Diagnoses Diagnosis Hospital discharge follow-up- Primary Other follow-up examination Intractable migraine with aura with status migrainosus Migraine with aura, with intractable migraine, so stated, with status migrainosus Rhinovirus infection Rhinovirus infection in conditions classified elsewhere and of unspecified site documented in this encounter Care Teams Farm Equipment Engineer Relationship Specialty Start Date End Date Riri Krishna MD [address] [place] [address] PCP - General Family Medicine 07/16/24 documented as of this encounter
[2024-07-19 15:36] LABS: Appearance Urine Cloudy (Clear); Bacteria Urine Automated None Seen (None Seen); Bilirubin Urine Negative (Negative); Blood Urine Negative (Negative); Cast Urine Automated 0-2 /lpf (0-2); Color Urine Yellow; Epithelial Cell Urine Auto 0-2 /hpf (0-2); Glucose Urine UA Negative (Negative); Ketones Urine Negative (Negative); Leukocyte Esterase Urine Trace (Negative); Nitrite Urine Negative (Negative); Protein Urine Negative (Negative); RBC Urine Automated 0-2 /hpf (0-2); Specific Gravity Urine 1.019 (1.000-1.030); Urobilinogen Urine Negative (Negative); WBC Urine Automated 0-5 /hpf (0-5); pH Urine 8.5 (4.5-7.5)
[2024-07-19] MEDS: MAGNESIUM OXIDE 400 MG TAB PO SCH (16:48)
--- NOTE | 2024-07-19 16:51 | Magnetic Resonance Report ---
MR venography head wo con CLINICAL HISTORY: rule out venous sinus thrombosis TECHNIQUE: Multiplanar and multisequence MR images of the brain were obtained with MR venography prot ocol Comparison: Comparison is made to MRI brain 07/19/2024 FINDINGS: Normal patency and flow is seen in the dural sinuses and visualized cerebral veins. The imaged portio ns of the paranasal sinuses, mastoid air cells, and orbits are unremarkable. IMPRESSION: No acute abnormalities. ACT 112: Negative or not required by law. Electronically signed by: Jose Mota M.D. 07/19/2024 4:48 PM
[2024-07-19] MEDS: KETOROLAC TROMETHAMINE 15 MG/ML VIAL IV PRN (17:36)
--- NOTE | 2024-07-19 19:07 | Communication Note ---
Date of Service: July 19, 2024 Given Sinus Tachycardia, Will add Propranolol for Migraine Prophylaxis.
[2024-07-19] MEDS ORDERED: AMITRIPTYLINE HCL 50 MG TAB PO SCH (21:00)
[2024-07-19] MEDS: PROPRANOLOL HCL 20 MG TAB PO SCH (21:18)
[2024-07-19] MEDS: TOPIRAMATE 25 MG TAB PO SCH (21:18)
[2024-07-20 07:03] LABS: Hemoglobin 13.7 g/dl (12.0-16.0); Mean Corpuscular Hemoglobin 27.6 pg (25.0-34.0); Mean Corpuscular Hgb Conc 33.4 g/dL (32.0-36.0); Mean Corpuscular Volume 82.7 fL (80.0-100.0); Mean Platelet Volume 8.5 fL (9.4-12.4); Platelet Count 432 K/uL (130-400); RDW Coefficient of Variation 12.8 % (11.5-14.5); RDW Standard Deviation 38.5 fL (36.4-46.3); Red Blood Count 4.96 M/uL (4.20-5.40); White Blood Count 13.56 K/ul (4.8-10.8)
[2024-07-20 07:27] VITALS: BP 111/78; PULSE 87; RESP 16; TEMP 98.4; O2SAT 100
[2024-07-20 07:30] LABS: BUN Creatinine Ratio 15.2 (10-20); Calcium 8.8 mg/dl (8.6-10.3); Creatinine Clr Calc Pharmacy 88.2 ml/min; Potassium 4.4 mmol/L (3.5-5.1)
--- NOTE | 2024-07-20 07:37 | Electrocardiogram Report ---
Test Reason : Blood Pressure : */* mmHG Vent. Rate : 128 BPM Atrial Rate : 128 BPM P-R Int : 126 ms QRS Dur : 82 ms QT Int : 298 ms P-R-T Axes : 60 39 -6 degrees QTcB Int : 435 ms Sinus tachycardia Diffuse Minor Abnormal ECG When compared with ECG of 02-Jun-2024 01:36, Vent. rate has increased by 50 bpm Nonspecific T wave abnormality now present Confirmed by Xander Alvarado ([id number]) on 07/20/2024 7:37:07 AM Referred By: REFERRED SELF Confirmed By: Xander Alvarado
--- NOTE | 2024-07-20 13:30 | Hospitalist Progress Note ---
Date of Service July 20, 2024 Assessment & Plan (1) Migraine: Plan: Intractable migraine headache Worsening frequency and intensity of attacks the last couple of weeks --MRI Brain:Unremarkable MRI of the brain. --S/P LP: not contributory --CSF Culture--preliminary no growth -- Lyme CSF PCR pending --MR venography of head:No acute abnormalities. Uses sumatriptan as needed Appreciate neurology input Discontinue amitriptyline Start on Topamax 25 mg at bedtime for 1 week then increase to 50 mg at bedtime on week 2 if tolerates : Risks and benefits of Topamax and warned about as it is category C Will add magnesium oxide, vitamin B2, propranolol for prophylaxis Suspected sinusitis Leukocytosis likely due to above No other obvious source of infection --CXR:No acute cardiopulmonary findings. --UA not suggestive of UTI Will start on Augmentin Sinus tachycardia Asymptomatic Started on propranolol as above Steroid-induced hyperglycemia HbA1C 5.6 DVT Px: SCDs Code Status Full code Admission and Anticipated Discharge Date Admission Date: July 19, 2024 Subjective Patient is seen and examined at bedside States having some sinus pressure and tenderness Headache resolved Offers no other complaints today Denies any nausea, vomiting, chest pain, dyspnea, dizziness, abd pain Review of Systems Review of Systems: All systems reviewed & are unremarkable except as noted in Subjective Physical Exam Physical Exam: Physical Exam: Vitals signs as noted above General Appearance:Moderately built and nourished, no apparent distress Head: normocephalic, Atraumatic Eyes: normal inspection, EOMI Neck: supple, Trachea midline Respiratory/Chest: Normal breath sounds, CTA, No accessory muscle use Cardiovascular: S1, S2, No murmur Abdomen/GI:Soft, Non tender, Bowel sounds present Extremities/Musculoskeletal:normal inspection, no edema Neurologic/Psych:AAOX3, grossly no focal neurological deficits Skin: normal color, warm Results & Data Results & Data Vital Signs (Past 12 Hours) Vital Signs Temp Pulse Resp BP Pulse Ox O2 Del Method 07/20/24 07:27 36.9 C 87 16 111/78 100 Room Air Laboratory Results Short CBC 07/20/24 Range/Units 06:41 WBC 13.56 H (4.8-10.8) K/ul Hgb 13.7 (12.0-16.0) g/dl Hct 41.0 (37.0-47.0) % Plt Count 432 H (130-400) K/uL BMP 07/20/24 06:41 Sodium 138 Potassium 4.4 Chloride 105 Carbon Dioxide 29 BUN 12 Creatinine 0.79 Glucose 90 Calcium 8.8 Urine 07/19/24 Range/Units Unknown Urine Color Yellow Urine Appearance Cloudy A (Clear) Urine pH 8.5 H (4.5-7.5) Ur Specific [place] 1.019 (1.000-1.030) Urine Protein Negative (Negative) Urine Glucose (UA) Negative (Negative) (1) Migraine Intractability: intractable Migraine type: other Status migrainosus presence: with status migrainosus Qualified Code(s): G43.811 - Other migraine, intractable, with status migrainosus
--- NOTE | 2024-07-20 13:53 | Discharge Summary ---
Date of Service July 20, 2024 Admission HPI Per Admitting Provider History obtained from patient and records. Medical history significant for migraine, bronchial asthma. Recent confinement 2 weeks ago for intractable migraine headache precipitated by entero/rhinovirus infection. Headache symptoms improved with steroid an Imitrex Rx. Patient discharged on higher dose of amitriptyline Rx. Outpatient Neurology evaluation contemplated by PCP on follow-up visit. Patient had recurrence of migraine headache symptoms shortly after discharge from the hospital. [facility] ER visit 5 days ago with subsequent discharge. Last night, patient had recurrence of more intense migraine attack. Bright spots with achy left-sided headache symptoms. Some nausea and vomiting. No fever, no chills, no chest pain, no SOB, no abdominal pain. Denies unusual stress at home. Intractable discomfort of the ER. Intractable discomfort at the ER. Medical History as above Surgical History : None Family History : Bronchial asthma Personal/Social history : Non-smoker, no EtOH intake, unemployed Principal Diagnosis Intractable migraine Possible Sinusitis Discharge Data Allergies Allergy/AdvReac Type Severity Reaction Status Date / Time No Known Allergies Allergy Verified 07/13/24 11:37 Consultations 07/19/24 05:00 ED Decision to Admit Stat 07/19/24 05:26 Consult Neurology Routine Procedures Performed Short CBC 07/20/24 Range/Units 06:41 WBC 13.56 H (4.8-10.8) K/ul Hgb 13.7 (12.0-16.0) g/dl Hct 41.0 (37.0-47.0) % Plt Count 432 H (130-400) K/uL BMP 07/20/24 06:41 Sodium 138 Potassium 4.4 Chloride 105 Carbon Dioxide 29 BUN 12 Creatinine 0.79 Glucose 90 Calcium 8.8 Urine 07/19/24 Range/Units Unknown Urine Color Yellow Urine Appearance Cloudy A (Clear) Urine pH 8.5 H (4.5-7.5) Ur Specific [place] 1.019 (1.000-1.030) Urine Protein Negative (Negative) Urine Glucose (UA) Negative (Negative) Ordered Studies 07/19/24 00:13 CT head/brain wo con Stat 07/19/24 05:26 MRI Brain [MR brain wo/w con] Routine 07/19/24 15:24 MR venography head wo con Urgent Hospital Course (1) Migraine: Intractable migraine headache Worsening frequency and intensity of attacks the last couple of weeks --MRI Brain:Unremarkable MRI of the brain. --S/P LP: not contributory --CSF Culture--preliminary no growth -- Lyme CSF PCR pending --MR venography of head:No acute abnormalities. Uses sumatriptan as needed Appreciate neurology input Discontinue amitriptyline Start on Topamax 25 mg at bedtime for 1 week then increase to 50 mg at bedtime on week 2 if tolerates : Risks and benefits of Topamax and warned about as it is category C Will add magnesium oxide, vitamin B2, propranolol for prophylaxis Suspected sinusitis Leukocytosis likely due to above No other obvious source of infection --CXR:No acute cardiopulmonary findings. --UA not suggestive of UTI Will start on Augmentin Sinus tachycardia Asymptomatic Started on propranolol as above Steroid-induced hyperglycemia HbA1C 5.6 DVT Px: SCDs Code Status Full code Total Time Total Time Spent Total Time Spent (In Minutes): 43 minutes Discharge Plan Discharge Items Patient Disposition: Home - Self-Care Reason For Visit: HANSEN Discharge Diagnosis: Intractable migraine Possible Sinusitis Condition on Discharge: Good Activity: Per Instructions section Exercise/Sports: Gradually increase as tolerated Non-emergency contact: Primary Care Provider Call non-emergency contact if: you have any medication questions, your symptoms worsen, your pain is concerning for you and you have a fever Follow-up/Referrals: Elena Valerio PA-C [[employer]] - (Date & Time 07/26/2024 12:30 PM Provider Elena Valerio PA-C Department Neurology [facility] ) Riri Krishna MD [Primary Care Provider] - (Date & Time 07/23/2024 9:00 AM Provider Riri Krishna MD Department Family Practice [facility] ) Diet: Heart Healthy Addtl Attending Provider Instructions: Follow-up with your primary care physician and your neurologist as scheduled --Your CSF culture is pending at the time of discharge. Follow-up with your physician for results. --Complete the antibiotic course Augmentin as prescribed for sinusitis. -- Discuss with your primary care physician/neurologist for further recommendations regarding Topamax use (important to avoid while on this medication) Seek immediate medical attention if your symptoms reoccur or worsen Please take all medications as instructed on discharge list below. Please call if you have any questions or problems. You can reach a [facility] hospitalist on duty at [facility] 24 hours a day by calling [phone] Pending Studies at Discharge: Yes Studies:: CF culture Stand-Alone Forms: [facility], Smoking Cessation Medications and DC Order Prescriptions: New topiramate 25 mg Tablet 25 mg PO UD Qty: 60 0RF Rx Instructions: Start Topamax 25 mg at bedtime for 1 week then increase to 50 mg at bedtime on week 2 if tolerated propranolol 20 mg Tablet 20 mg PO BID Qty: 60 0RF magnesium oxide 400 mg (241.3 mg magnesium) Tablet 400 mg PO QAM Qty: 30 0RF riboflavin (vitamin B2) 400 mg tablet 400 mg PO DAILY Qty: 30 0RF amoxicillin-pot clavulanate [Augmentin] 500-125 mg tablet 1 tab PO BID Qty: 10 0RF Continued ondansetron 4 mg tablet,disintegrating 4 - 8 mg PO Q8H PRN (Reason: nausea and vomiting) Qty: 14 0RF sumatriptan succinate 50 mg tablet 100 mg PO DIRECTED Discontinued amitriptyline 25 mg Tablet 25 mg PO HS Qty: 30 0RF Discharge Orders: Discharge Order (Routine); Ordered 07/20/24 Ordered By: Omid Marcos Admission Data Admit Date/Time: 07/19/24 05:26 Attending Provider: Omid Marcos Admit Provider: Markel Kennedy Primary Care Provider: Riri Krishna Other Providers: Markel Kennedy; Shanti Escobar; Ethan Calderon; Shanti Sweet; Jimy Seo; Henri Reddy; Bin Arias; Xander Grajeda; Elena Valerio; Camden Mcnally; Jonathon Woodruff; Montana Cyr; Haja Esparza; Viviana Clements; Fabi Lam; Xander Cee; Wendy Santiago
[2024-07-23 09:27] LABS: Lyme DNA PCR CSF or Synovial Not Detected (Not Detected); Lyme DNA Source CSF
== END 2024-07-20 15:11 | disposition home or self-care (01) ==
LOC: ED 00:08 → EDINP 00:08 → 3E 12:36

== ENCOUNTER 2024-08-17 20:26 | Inpatient (IN) ==
[2024-08-17] MEDS: ONDANSETRON INJ 2 MG/ML 2 ML VIAL IV STA (21:43)
[2024-08-17] MEDS: SODIUM CHLORIDE 0.9% 1,000 ML IV SCH (21:43)
[2024-08-17] MEDS: MAGNESIUM SULFATE / D5W 1 GM/100 ML BAG IV ONE (21:48)
--- NOTE | 2024-08-17 21:51 | Emergency Department Note ---
Impression & Plan Intractable migraine without aura and with status migrainosus ED Provider Note CHIEF COMPLAINT: Continued migraine headache today HISTORY OF PRESENT ILLNESS: Patient is a 24-year-old female with past medical history significant for migraines who returns to the emergency department via EMS for continued migraine. She was seen and evaluated here earlier today, as well as being seen at [facility] this afternoon for the same complaint. Patient presented to the emergency department at 0300 this morning with a migraine. Thorough workup was performed. She was treated with IV fluids, Toradol, Benadryl, Compazine, Decadron and Tylenol. Ultimately, tested positive for COVID. Was given a prescription for prednisone for her migraine. Patient reports that she did feel a little bit better when she left the emergency department but the headache returned. She was seen at [facility] between [id number] and treated with IM Toradol and Benadryl. She reports no improvement with those medications and is thus here for evaluation. She reports a throbbing, frontal headache with associated nausea and ringing in the ears. She reports some tingling in her face. No focal weakness. She tried her triptan today without relief. She also tried Tylenol. She is taking her rout ine maintenance medications for her migraine as well. She currently rates her pain a 10/10. REVIEW OF SYSTEMS: Review of systems as per HPI. All other systems reviewed were negative. 10 systems reviewed. PMH: External medical records are reviewed and summarized as above/below. See Problem List. SOCIAL HISTORY: Patient lives at home. PHYSICAL EXAM: Vital Signs: Reviewed Nurse's notes. General Appearance: Patient is an uncomfortable appearing 24-year-old female who is awake and alert and laying in a gurney. Eyes: Pupils equal round reactive to light extraocular muscles are intact, no proptosis, mild photophobia ENT: Oropharynx is clear, mucous membranes are moist, tympanic membranes are clear bilaterally, no sinus or dental tenderness Neck: Supple, no cervical lymphadenopathy, no meningismus Heart: Regular rate and rhythm, S1 and S2 Lungs: Clear to auscultation bilaterally Abdomen: Soft nontender nondistended. Normal active bowel sounds. No rebound. No guarding. Back: No midline tenderness to palpation. Extremities: No cyanosis, clubbing, or edema Neurologic: Patient is awake alert, and oriented x 3. Cranial nerves 2-12 are grossly intact. Motor 5 out of 5 strength bilateral upper extremities and lower extremities. No gross sensory deficits. Reflexes are 2+ throughout. EMERGENCY DEPARTMENT COURSE: The patient was seen and assessed as above. External medical records reviewed including prior ED visit from today and [facility] note. She had just received IM Toradol less than 6 hours ago. Saline lock was initiated. She was treated with a liter bolus of normal saline solution, Zofran 4 mg, valproic acid 1000 mg and magnesium sulfate 1 g IV. On reassessment after the valproic acid, patient reported that her headache was still an 8/10. She was given Toradol IV. She has required admission twice last month migraine. Patient was reassessed after the Toradol, and still reported no improvement. She does not feel that she can go home. I suspect the migraine was triggered by her viral illness. She has a reassuring neurologic exam. I do not suspect meningitis. She had recent neuroimaging that was unremarkable. She has been treated with multiple rounds of IV and IM medications in the last 24 hours, all without relief. Patient discussed with ED case briefer, and reviewed with Dr. Parada with the [facility] service, and they will evaluate her for further care and management. Differential includes: acute intracranial bleed, meningitis, encephalitis, mass or mass effect, sinusitis, infection, migraine, tumor, headache, rebound headache, among others. 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 Beliefs That Will Affect Care: None Current Living Situation: Parent Current Living Situation Comment: lives with mom Feels Safe at Home: Yes Assistive Devices: None Allergies Allergies Allergy/AdvReac Type Severity Reaction Status Date / Time No Known Allergies Allergy Verified 08/17/24 16:48 Home Meds Home Medications Medication Instructions Recorded Confirmed sumatriptan succinate 50 mg tablet 100 mg PO DIRECTED 07/04/24 08/17/24 ondansetron HCl 8 mg tablet 8 mg PO Q8 PRN Nausea 08/17/24 08/17/24 topiramate 50 mg tablet 50 mg PO HS 08/17/24 08/17/24 Previous Rx's Medication Instructions Recorded ondansetron 4 mg disintegrating 4 - 8 mg (1 - 2 x 4 mg) PO Q8H PRN 07/14/24 tablet nausea and vomiting #14 tabs magnesium oxide 400 mg (241.3 mg 400 mg PO QAM #30 tabs 07/20/24 magnesium) tablet propranolol 20 mg tablet 20 mg PO BID #60 tabs 07/20/24 riboflavin (vitamin B2) 400 mg 400 mg PO DAILY #30 tabs 07/20/24 tablet topiramate 25 mg tablet 25 mg PO UD #60 tabs 07/20/24 prednisone 50 mg tablet 50 mg PO DAILY 4 days #4 tabs 08/17/24 Results & Data (ED) Vital Signs Vital Signs - 24 hr 08/17/24 20:22 08/17/24 22:22 Temperature 36.8 C Temperature Source Oral Pulse Rate 84 Pulse Rate [Right Finger] 78 Pulse Rhythm Regular Pulse Rhythm [Right Finger] Regular Pulse Strength Normal Pulse Strength [Right Finger] Normal Respiratory Rate 20 20 Respiratory Effort / Characteristics Non-Labored Spontaneous Non-Labored Spontaneous Respiratory Depth Normal Normal Respiratory Pattern Regular Regular Blood Pressure 120/78 Blood Pressure [Left Arm] 124/61 Blood Pressure Mean 92 Blood Pressure Mean [Left Arm] 82 Blood Pressure Position Lying Blood Pressure Position [Left Arm] Lying Pulse Oximetry 98 100 Oxygen Delivery Method Room Air Room Air Sepsis Recent Fever Within 48 Hours No Sepsis New/Unexplained Change in Mental Status No Sepsis Action Taken by Nursing No Action Required Home Medications Current Medication List: was personally reviewed by me Administered Medications Discontinued Medications Valproic Acid 1,000 mg/ (Dextrose) 60 mls @ 55 mls/hr IV NOW STA Stop: 08/17/24 22:41 Last Infusion: 08/18/24 00:39 Dose: Infused Documented By: Admin: 08/17/24 23:31 Dose: 55 mls/hr Documented By: Sodium Chloride (Nss) 1,000 mls @ 999 mls/hr IV .Q1H1M MAYKEL Stop: 08/17/24 22:37 Last Infusion: 08/17/24 22:35 Dose: Infused Documented By: Admin: 08/17/24 21:43 Dose: 999 mls/hr Documented By: WILBUR Magnesium Sulfate/Dextrose (Magnesium Sulfate / D5w) 1 gm in 100 mls @ 100 mls/hr IV NOW ONE Stop: 08/17/24 22:36 Last Infusion: 08/17/24 23:31 Dose: Infused Documented By: Admin: 08/17/24 21:48 Dose: 100 mls/hr Documented By: WILBUR Ketorolac Tromethamine (Ketorolac 30 Mg/Ml Vial) 30 mg IV NOW STA Stop: 08/18/24 01:07 Last Admin: 08/18/24 01:17 Dose: 30 mg Documented By: Ondansetron HCl (Ondansetron Inj 2 Mg/Ml 2 Ml Vial) 4 mg IV NOW STA Stop: 08/17/24 21:37 Last Admin: 08/17/24 21:43 Dose: 4 mg Documented By: WILBUR Discharge Plan Visit Data Chief Complaint: Headache Stated Complaint: Headache ED Provider: Alvin Pollock ED Midlevel Provider: Julee Garcia Discharge Problem: Intractable migraine without aura and with status migrainosus Patient Disposition: Being Evaluated by Hospitalist Forms Stand Alone Forms: [facility] Prescriptions Prescriptions: No Action ondansetron 4 mg tablet,disintegrating 4 - 8 mg PO Q8H PRN (Reason: nausea and vomiting) Qty: 14 0RF topiramate 25 mg Tablet 25 mg PO UD Qty: 60 0RF Rx Instructions: Start Topamax 25 mg at bedtime for 1 week then increase to 50 mg at bedtime on week 2 if tolerated propranolol 20 mg Tablet 20 mg PO BID Qty: 60 0RF magnesium oxide 400 mg (241.3 mg magnesium) Tablet 400 mg PO QAM Qty: 30 0RF riboflavin (vitamin B2) 400 mg tablet 400 mg PO DAILY Qty: 30 0RF prednisone 50 mg tablet 50 mg PO DAILY 4 Days Qty: 4 0RF ondansetron HCl 8 mg tablet 8 mg PO Q8 PRN (Reason: Nausea) topiramate 50 mg tablet 50 mg PO HS sumatriptan succinate 50 mg tablet 100 mg PO DIRECTED Referrals Referrals: Riri Krishna MD [Primary Care Provider] -
[2024-08-17] MEDS: VALPROATE SOD 1,000 MG in DEXTROSE 5% 50 ML IV STA (23:31)
[2024-08-18] MEDS: KETOROLAC 30 MG/ML VIAL IV STA (01:17)
--- NOTE | 2024-08-18 02:06 | History & Physical Report ---
Date of Service August 18, 2024 Assessment & Plan (1) COVID-19: Plan: Shortness of breath secondary to COVID-19 illness Complicated bronchitis, no sepsis for now Rule out PE given pleuritic chest pain complaints Intractable migraine secondary to above Medical telemetry Azithromycin course for complicated bronchitis CT chest PE study re: chest pain and SOB, COVID-19 illness Imitrex trial for migraine attack Neurology consult if without improvement DVT prophylaxis. Lovenox subcu Full code Patient mother requesting updates from providers. Ms. Bruna Mcgarry, contact #[phone]. Text document was generated using Vdancer recognition software. It may contain grammatical or spelling errors. Kindly contact undersigned for clarification of any documentation item in question. History of Present Illness Chief Complaint: Migraine Primary Care Provider: Riri Krishna MD History obtained from patient and records. Medical history significant for migraine, bronchial asthma. Two admissions last month for intractable migraine. Recent confinement July 19 to 2023. Patient discharged on Topamax maintenance Rx. 07/26 Patient seen on follow-up at [facility] Neurology office. Topamax increased to 50 mg p.o. at bedtime Home propranolol discontinued due to being ineffective. Few days ago, patient noted junky cough symptoms associated with pleuritic chest pain with SOB. Denies aspiration. Possible sick contacts at home. Worsening migraine attack. Patient consulted [facility] ER yesterday morning. Patient found to be COVID-19 positive. Patient discharged on prednisone Rx. Patient consulted urgent care facility yesterday afternoon due to worsening symptoms. No improvement despite IM Toradol and Benadryl administration. Patient went back to ER last night for intractable symptoms. Medical History as above Surgical History : None Family History : Bronchial asthma Personal/Social history : Non-smoker, no EtOH intake, unemployed Allergies Allergy/AdvReac Type Severity Reaction Status Date / Time No Known Allergies Allergy Verified 08/17/24 16:48 Home Medications Medication Instructions Recorded Confirmed Type sumatriptan succinate 50 mg tablet 100 mg PO DIRECTED 07/04/24 08/18/24 History magnesium oxide 400 mg (241.3 mg 400 mg PO QAM #30 tabs 07/20/24 08/18/24 Rx magnesium) tablet riboflavin (vitamin B2) 400 mg 400 mg PO DAILY #30 tabs 07/20/24 08/18/24 Rx tablet ondansetron HCl 8 mg tablet 8 mg PO Q8 PRN Nausea 08/17/24 08/17/24 History prednisone 50 mg tablet 50 mg PO DAILY 4 days #4 tabs 08/17/24 08/18/24 Rx topiramate 50 mg tablet 50 mg PO HS 08/17/24 08/17/24 History sumatriptan succinate 50 mg tablet 100 mg PO UD 08/18/24 08/18/24 History Past Med/Surg History Problem List (Updated 08/18/24 @ 01:46 by Julee Garcia) COVID-19 (Acute) Intractable migraine without aura and with status migrainosus (Acute) Rhinovirus (Acute) Migraine (Acute) Medical History Migraines Surgical History No significant past surgical history Social History Smoking Status: Never smoker Second Hand Exposure: No; Do You Dip or Chew Tobacco: No; Hx Alcohol Use: No Hx Substance Use: No Preferred Language: Portuguese Communication Ability: Effective Primary Counselor Required: No Beliefs That Will Affect Care: None Current Living Situation: Parent and Family Current Living Situation Comment: lives with mom Feels Safe at Home: Yes Safety Concerns: Feels Safe At This Time Assistive Devices: None Review of Systems Review of Systems: As per HPI, all other systems reviewed and negative Results & Data Results & Data Vital Signs (Past 12 Hours) Vital Signs Temp Pulse Pulse Resp BP BP Pulse Ox 08/17/24 22:22 78 20 124/61 100 08/17/24 20:22 36.8 C 84 20 120/78 98 O2 Del Method 08/17/24 22:22 Room Air 08/17/24 20:22 Room Air Laboratory Results Lab Results 08/18/24 Range/Units 02:27 WBC 21.56 H D (4.8-10.8) K/ul RBC 4.79 (4.20-5.40) M/uL Hgb 12.9 (12.0-16.0) g/dl Hct 37.9 (37.0-47.0) % MCV 79.1 L (80.0-100.0) fL MCH 26.9 (25.0-34.0) pg MCHC 34.0 (32.0-36.0) g/dL RDW Std Deviation 37.1 (36.4-46.3) fL RDW Coeff of Rigo 13.0 (11.5-14.5) % Plt Count 518 H (130-400) K/uL MPV 9.0 L (9.4-12.4) fL Immature Gran % (Auto) 0.6 % Neut % (Auto) 84.3 % Lymph % (Auto) 8.3 % [place] % (Auto) 6.7 % Eos % (Auto) 0.0 % Baso % (Auto) 0.1 % Neut # (Auto) 18.18 H (1.40-6.50) K/uL Lymph # (Auto) 1.78 (1.20-3.40) K/uL [place] # (Auto) 1.44 H (0.11-0.59) K/uL Eos # (Auto) 0.00 (0.00-0.50) K/uL Baso # (Auto) 0.02 (0.00-0.20) K/uL Immature Gran # (Auto) 0.14 (0.01-0.20) K/uL APTT 25 (21-31) Seconds PTT Ratio 0.9 Sodium 138 (136-145) mmol/L Potassium 3.8 (3.5-5.1) mmol/L Chloride 114 H (98-107) mmol/L Carbon Dioxide 15 L (21-32) mmol/L Anion Gap 9 (3-11) BUN 7 (6-23) mg/dl Creatinine 0.86 (0.6-1.2) mg/dl Est Cr Clr Drug Dosing 79.6 ml/min eGFR 97.29 BUN/Creatinine Ratio 8.1 L (10-20) Glucose 124 H (70-99(Fasting)) mg/dl Calcium 9.0 (8.6-10.3) mg/dl Magnesium 2.1 (1.7-2.4) mg/dl Total Bilirubin 0.4 (0.2-1.0) mg/dl AST 19 (13-39) U/L ALT 9 (7-52) U/L Alkaline Phosphatase 58 (34-104) U/L Troponin I High Sens 4.4 (0-14) pg/ml Total Protein 6.4 (6.0-8.3) gm/dl Albumin 3.9 (3.4-5.0) gm/dl Globulin 2.5 (2.5-4.0) gm/dl Albumin/Globulin Ratio 1.6 (0.9-2) Diagnostic Findings EKG as per my interpretation :Rate 75, NSR, normal axis, septal infarct, T wave flattening septal leads
[2024-08-18] MEDS ORDERED: ACETAMINOPHEN 325 MG TAB PO PRN (02:09)
[2024-08-18] MEDS: SUMAtriptan succinate 50 MG TAB PO STA (02:42)
[2024-08-18] MEDS: AZITHROMYCIN 250 MG TAB PO STA (02:42)
[2024-08-18] MEDS: ACETAMINOPHEN 1,000 MG/100 ML VIAL IV STA (02:42)
[2024-08-18 03:11] LABS: Albumin Globulin Ratio 1.6 (0.9-2); Albumin Level 3.9 gm/dl (3.4-5.0); BUN Creatinine Ratio 8.1 (10-20); Bilirubin,Total 0.4 mg/dl (0.2-1.0); Creatinine Clr Calc Pharmacy 79.6 ml/min; Globulin 2.5 gm/dl (2.5-4.0); Magnesium 2.1 mg/dl (1.7-2.4); Potassium 3.8 mmol/L (3.5-5.1); Total Protein 6.4 gm/dl (6.0-8.3)
[2024-08-18 03:12] LABS: Basophils # (auto) 0.02 K/uL (0.00-0.20); Basophils % (auto) 0.1 %; Hematocrit (blood only) 37.9 % (37.0-47.0); Hemoglobin 12.9 g/dl (12.0-16.0); Immature Granulocytes # (auto) 0.14 K/uL (0.01-0.20); Immature Granulocytes % (auto) 0.6 %; Lymphocytes # (auto) 1.78 K/uL (1.20-3.40); Lymphocytes % (auto) 8.3 %; Mean Corpuscular Hemoglobin 26.9 pg (25.0-34.0); Mean Corpuscular Volume 79.1 fL (80.0-100.0); Monocytes # (auto) 1.44 K/uL (0.11-0.59); Monocytes % (auto) 6.7 %; Neutrophils # (auto) 18.18 K/uL (1.40-6.50); Neutrophils % (auto) 84.3 %; Platelet Count 518 K/uL (130-400); RDW Standard Deviation 37.1 fL (36.4-46.3); Red Blood Count 4.79 M/uL (4.20-5.40); White Blood Count 21.56 K/ul (4.8-10.8)
[2024-08-18 03:16] LABS: Troponin I High Sensitivity 4.4 pg/ml (0-14)
[2024-08-18 03:19] LABS: Partial Thromboplastin Ratio 0.9; Partial Thromboplastin Time 25 Seconds (21-31)
[2024-08-18] MEDS: OPTIRAY 320 125ml IV ONE (03:32)
[2024-08-18] MEDS: LACTATED RINGER'S 1,000 ML IV STA (03:56)
--- NOTE | 2024-08-18 04:34 | CT Scan Report ---
EXAM: CT angio chest PE protocol CLINICAL HISTORY: Pt. presents to the ED with a migraine from home via EMS. Pt. was seen at urgent care today and given IV bendaryl as well as toradol. Pt. went home and the pain got worse. She also had dizziness develop. She has a history of migraines. Patient is also COVID-19 Positive. Seen here yesterday for the same thing. pt denies preg 79 ml opti 320 PW TECHNIQUE: Contiguous 3.[address] angiographic images of the chest were acquired with the administration of intravenous contrast. Coronal and sagittal reconstructions were obtained. One of these 3D techniques was utilized: Maximum Intensity Pixel (MIP), 3D Reconstructed Images, Volume Rendered Images, Surface Shaded Rendering. One of the following dose reduction techniques was utilized for this exam: Automated exposure control, adjustment of the mA and/or kV according to patient size, and use of iterative reconstruction. COMPARISON: CXR 07/19/2024. FINDINGS: Aorta: The thoracic aorta is normal in caliber. No evidence of aneurysm, dissection, or significant atherosclerotic changes. Aortic arch and descending thoracic aorta are unremarkable. Pulmonary Arteries: Pulmonary arteries are normal in size and opacification. No evidence of pulmonary embolism. No stenosis or filling defects. Superior Vena Cava (SVC) and Inferior Vena Cava (IVC): Normal opacification and caliber. No evidence of thrombus or obstruction. Coronary Arteries: Coronary arteries are well-opacified. No significant stenosis or atherosclerotic changes. Mediastinum: No mediastinal mass or lymphadenopathy. Normal appearance of the thymus. Heart: Normal size and morphology of the heart. No pericardial effusion. Lungs: Lungs are clear with no evidence of consolidation, nodules, or masses. No pleural effusion or thickening. Bones: No fractures or lytic/sclerotic lesions of the visualized bony structures. Normal alignment and bone density. Soft Tissues: Normal appearance of the visualized soft tissues. No abnormal masses or fluid collections. IMPRESSION: 1. Normal CT angiography of the chest. 2. No evidence of significant vascular abnormalities. Electronically signed by Sirena Hidalgo 08-18-2024 04:33 AM
[2024-08-18] MEDS: KETOROLAC TROMETHAMINE 15 MG/ML VIAL IV PRN ×2 (08:10→17:31)
[2024-08-18] MEDS ORDERED: NON-FORMULARY MEDICATION (Riboflavin (Vitamin B2) 400 mg tablet) PO SCH (09:00)
[2024-08-18] MEDS: MAGNESIUM OXIDE 400 MG TAB PO SCH (10:05)
[2024-08-18] MEDS: cefTRIAXone SODIUM 1,000 MG/50 ML BAG IV SCH (10:05)
[2024-08-18] MEDS: ENOXAPARIN INJ 40 MG/0.4 ML SYR SQ SCH (10:05)
[2024-08-18] MEDS: oxyCODONE HCL IR 5 MG TAB (IMMEDIATE RELEASE) PO PRN (10:13)
[2024-08-18] MEDS: FAMOTIDINE 20 MG TAB PO SCH (12:46)
[2024-08-18] MEDS: ACETAMINOPHEN 1,000 MG/100 ML VIAL IV SCH (12:46)
--- NOTE | 2024-08-18 12:46 | Hospitalist Progress Note ---
Date of Service August 18, 2024 Assessment & Plan (1) COVID-19: Plan: COVID-19 infection Acute bronchitis secondary to above --Chest CTA:Normal CT angiography of the chest. No evidence of significant vascular abnormalities. -- BioFire positive for COVID-19 --Check procalcitonin, CRP Empirically on Rocephin, azithromycin Saturating well on room air Albuterol, Antitussives as needed Received IV fluids Advance diet as tolerated Intractable migraine Evaluated by neurology last admission Received sumatriptan Continue topiramate Continue magnesium, vitamin B2 Analgesics as needed Will request neurology to reevaluate if no improvement Prediabetes HbA1c 5.6 DVT Px Lovenox SQ Code Status Full code Admission and Anticipated Discharge Date Admission Date: August 18, 2024 Subjective Patient is seen and examined at bedside States having headache, better when compared to yesterday Also reports abdominal discomfort with bloating and generalized pain Saturating well on room air Has intermittent cough Denies any dyspnea, nausea, vomiting, dizziness Review of Systems Review of Systems: All systems reviewed & are unremarkable except as noted in Subjective Physical Exam Physical Exam: Physical Exam: Vitals signs as noted above General Appearance:Moderately built and nourished, no apparent distress Head: normocephalic, Atraumatic Eyes: normal inspection, EOMI Neck: supple, Trachea midline Respiratory/Chest: Normal breath sounds, CTA, No accessory muscle use Cardiovascular: S1, S2, No murmur Abdomen/GI:Soft, Non tender, Bowel sounds present Extremities/Musculoskeletal:normal inspection, no edema Neurologic/Psych:AAOX3, grossly no focal neurological deficits Skin: normal color, warm Results & Data Results & Data Vital Signs (Past 12 Hours) Vital Signs Temp Pulse Pulse Pulse Resp BP BP 08/18/24 09:36 36.6 C 76 18 102/70 08/18/24 08:20 08/18/24 07:31 65 08/18/24 07:31 85 08/18/24 05:07 08/18/24 03:43 36.5 C 82 18 115/77 08/18/24 02:50 68 20 125/70 Pulse Ox O2 Del Method 08/18/24 09:36 100 Room Air 08/18/24 08:20 Room Air 08/18/24 07:31 08/18/24 07:31 08/18/24 05:07 Room Air 08/18/24 03:43 100 Room Air 08/18/24 02:50 100 Room Air Laboratory Results Short CBC 08/18/24 Range/Units 02:27 WBC 21.56 H D (4.8-10.8) K/ul Hgb 12.9 (12.0-16.0) g/dl Hct 37.9 (37.0-47.0) % Plt Count 518 H (130-400) K/uL BMP 08/18/24 02:27 Sodium 138 Potassium 3.8 Chloride 114 H Carbon Dioxide 15 L BUN 7 Creatinine 0.86 Glucose 124 H Calcium 9.0 Liver Function 08/18/24 Range/Units 02:27 Total Bilirubin 0.4 (0.2-1.0) mg/dl AST 19 (13-39) U/L ALT 9 (7-52) U/L Alkaline Phosphatase 58 (34-104) U/L Albumin 3.9 (3.4-5.0) gm/dl
[2024-08-18] MEDS: ALBUTEROL HFA 8 GM INHALER INH SCH (14:03)
[2024-08-18] MEDS ORDERED: ALBUTEROL HFA 8 GM INHALER INH PRN (17:07)
[2024-08-18] MEDS: guaiFENesin/DEXTROM SYRUP 100MG/10MG 5ML UDC PO PRN (17:32)
[2024-08-18] MEDS: TOPIRAMATE 50 MG TAB PO SCH (21:01)
[2024-08-18] MEDS: LORazepam 0.5 MG TAB PO PRN (21:03)
[2024-08-19 06:26] LABS: Hematocrit (blood only) 35.6 % (37.0-47.0); Hemoglobin 11.9 g/dl (12.0-16.0); Mean Corpuscular Hemoglobin 27.2 pg (25.0-34.0); Mean Corpuscular Hgb Conc 33.4 g/dL (32.0-36.0); Mean Corpuscular Volume 81.3 fL (80.0-100.0); Mean Platelet Volume 8.9 fL (9.4-12.4); Platelet Count 461 K/uL (130-400); RDW Coefficient of Variation 13.2 % (11.5-14.5); RDW Standard Deviation 39.2 fL (36.4-46.3); Red Blood Count 4.38 M/uL (4.20-5.40); White Blood Count 9.84 K/ul (4.8-10.8)
[2024-08-19 06:54] LABS: Anion Gap 6 (3-11); BUN Creatinine Ratio 7.6 (10-20); Blood Urea Nitrogen 6 mg/dl (6-23); C Reactive Protein < 0.50 mg/dl (0-0.5); Calcium 8.7 mg/dl (8.6-10.3); Carbon Dioxide 23 mmol/L (21-32); Chloride 111 mmol/L (98-107); Creatinine Clr Calc Pharmacy 88.5 ml/min; Glucose 89 mg/dl (70-99(Fasting)); Potassium 3.9 mmol/L (3.5-5.1); Sodium 140 mmol/L (136-145)
--- NOTE | 2024-08-19 08:11 | Electrocardiogram Report ---
Test Reason : Blood Pressure : */* mmHG Vent. Rate : 76 BPM Atrial Rate : 76 BPM P-R Int : 128 ms QRS Dur : 76 ms QT Int : 390 ms P-R-T Axes : * 56 45 degrees QTcB Int : 438 ms Normal sinus rhythm Nonspecific T wave abnormality When compared with ECG of 19-Jul-2024 18:39, Vent. rate has decreased by 52 bpm Non-specific change in ST segment in Inferior leads Nonspecific T wave abnormality has replaced inverted T waves in Inferior leads Nonspecific T wave abnormality now evident in Anterior leads Confirmed by Avel Gannon ([id number]) on 08/19/2024 8:10:35 AM Referred By: REFERRED SELF Confirmed By: Avel Gannon
[2024-08-19] MEDS: PROMETHAZINE 6.25 MG/50.25 ML BAG IV PRN (08:48)
[2024-08-19] MEDS: AZITHROMYCIN 250 MG TAB PO SCH (08:50)
[2024-08-19] MEDS: POLYETHYLENE (MIRALAX) 17 GM PACK PO PRN (09:37)
[2024-08-19] MEDS: DOCUSATE SODIUM 100 MG CAP PO PRN (09:37)
--- NOTE | 2024-08-19 13:00 | Hospitalist Progress Note ---
Date of Service August 19, 2024 Assessment & Plan (1) COVID-19: Plan: COVID-19 infection Acute bronchitis secondary to above --Chest CTA:Normal CT angiography of the chest. No evidence of significant vascular abnormalities. -- BioFire positive for COVID-19 -Normal procalcitonin, CRP levels Empirically on Rocephin, azithromycin Saturating well on room air Albuterol, Antitussives as needed Received IV fluids Advance diet as tolerated Added bowel regimen to help with constipation Intractable migraine Evaluated by neurology last admission Received sumatriptan Continue topiramate Continue magnesium, vitamin B2 Analgesics as needed Will request neurology to reevaluate if no improvement Headache slowly improving Prediabetes HbA1c 5.6 DVT Px Lovenox SQ Code Status Full code Admission and Anticipated Discharge Date Admission Date: August 18, 2024 Subjective Patient is seen and examined at bedside Headache better today Reports constipation Generalized pain slightly improved as well Still has mild cough Saturating well on room air Review of Systems Review of Systems: All systems reviewed & are unremarkable except as noted in Subjective Physical Exam Physical Exam: Physical Exam: Vitals signs as noted above General Appearance:Moderately built and nourished, no apparent distress Head: normocephalic, Atraumatic Eyes: normal inspection, EOMI Neck: supple, Trachea midline Respiratory/Chest: Normal breath sounds, CTA, No accessory muscle use Cardiovascular: S1, S2, No murmur Abdomen/GI:Soft, Non tender, Bowel sounds present Extremities/Musculoskeletal:normal inspection, no edema Neurologic/Psych:AAOX3, grossly no focal neurological deficits Skin: normal color, warm Results & Data Results & Data Vital Signs (Past 12 Hours) Vital Signs Temp Pulse Pulse Resp BP Pulse Ox O2 Del Method 08/19/24 09:15 Room Air 08/19/24 08:31 36.6 C 72 18 120/86 99 Room Air 08/19/24 07:12 77 08/19/24 03:00 36.5 C 82 16 106/73 98 Room Air Laboratory Results Short CBC 08/19/24 Range/Units 06:00 WBC 9.84 (4.8-10.8) K/ul Hgb 11.9 L (12.0-16.0) g/dl Hct 35.6 L (37.0-47.0) % Plt Count 461 H (130-400) K/uL BMP 08/19/24 06:00 Sodium 140 Potassium 3.9 Chloride 111 H Carbon Dioxide 23 BUN 6 Creatinine 0.79 Glucose 89 Calcium 8.7
[2024-08-20 07:28] VITALS: RESP 14
[2024-08-20 07:30] LABS: Hematocrit (blood only) 38.8 % (37.0-47.0); Hemoglobin 12.8 g/dl (12.0-16.0); Mean Corpuscular Hemoglobin 27.2 pg (25.0-34.0); Mean Corpuscular Volume 82.4 fL (80.0-100.0); Mean Platelet Volume 8.9 fL (9.4-12.4); Platelet Count 465 K/uL (130-400); RDW Coefficient of Variation 13.1 % (11.5-14.5); RDW Standard Deviation 39.5 fL (36.4-46.3); Red Blood Count 4.71 M/uL (4.20-5.40); White Blood Count 8.61 K/ul (4.8-10.8)
[2024-08-20 07:48] LABS: BUN Creatinine Ratio 7.5 (10-20); Creatinine Clr Calc Pharmacy 75.2 ml/min; Potassium 3.3 mmol/L (3.5-5.1)
[2024-08-20] MEDS: POTASSIUM CHLORIDE CRTAB 20 MEQ TABCR PO ONE (10:41)
[2024-08-20 10:58] VITALS: BP 103/76; PULSE 85; TEMP 97.5; O2SAT 98
--- NOTE | 2024-08-20 12:35 | Hospitalist Progress Note ---
Date of Service August 20, 2024 Assessment & Plan (1) COVID-19: Plan: COVID-19 infection Acute bronchitis secondary to above --Chest CTA:Normal CT angiography of the chest. No evidence of significant vascular abnormalities. -- BioFire positive for COVID-19 -Normal procalcitonin, CRP levels Empirically on Rocephin, azithromycin>> position to oral antibiotics to complete the course Saturating well on room air Albuterol, Antitussives as needed Added bowel regimen to help with constipation Plan to discharge home today Intractable migraine Evaluated by neurology last admission Received sumatriptan Continue topiramate Continue magnesium, vitamin B2 Analgesics as needed Improved Advised to follow-up with neurology as outpatient Prediabetes HbA1c 5.6 DVT Px Lovenox SQ Code Status Full code Admission and Anticipated Discharge Date Admission Date: August 18, 2024 Subjective Patient is seen and examined at bedside Feels a lot better today No new complaints Minimal cough, improving Headache, generalized body ache much improved No significant dyspnea Denies any nausea, vomiting, abdominal pain, dizziness Plan to be discharged home today Review of Systems Review of Systems: All systems reviewed & are unremarkable except as noted in Subjective Physical Exam Physical Exam: Physical Exam: Vitals signs as noted above General Appearance:Moderately built and nourished, no apparent distress Head: normocephalic, Atraumatic Eyes: normal inspection, EOMI Neck: supple, Trachea midline Respiratory/Chest: Normal breath sounds, CTA, No accessory muscle use Cardiovascular: S1, S2, No murmur Abdomen/GI:Soft, Non tender, Bowel sounds present Extremities/Musculoskeletal:normal inspection, no edema Neurologic/Psych:AAOX3, grossly no focal neurological deficits Skin: normal color, warm Results & Data Results & Data Vital Signs (Past 12 Hours) Vital Signs Temp Pulse Resp BP Pulse Ox O2 Del Method 08/20/24 10:57 36.4 C L 85 14 103/76 98 Room Air 08/20/24 07:27 36.9 C 71 14 94/70 L 97 Room Air 08/20/24 03:14 36.4 C L 84 18 112/72 97 Room Air Laboratory Results Short CBC 08/20/24 Range/Units 06:48 WBC 8.61 (4.8-10.8) K/ul Hgb 12.8 (12.0-16.0) g/dl Hct 38.8 (37.0-47.0) % Plt Count 465 H (130-400) K/uL BMP 08/20/24 06:48 Sodium 139 Potassium 3.3 L Chloride 110 H Carbon Dioxide 25 BUN 7 Creatinine 0.93 Glucose 98 Calcium 9.0
--- NOTE | 2024-08-20 12:44 | Discharge Summary ---
Date of Service August 20, 2024 Admission HPI Per Admitting Provider History obtained from patient and records. Medical history significant for migraine, bronchial asthma. Two admissions last month for intractable migraine. Recent confinement July 192023. Patient discharged on Topamax maintenance Rx. 07/26 Patient seen on follow-up at [facility] Neurology office. Topamax increased to 50 mg p.o. at bedtime Home propranolol discontinued due to being ineffective. Few days ago, patient noted junky cough symptoms associated with pleuritic chest pain with SOB. Denies aspiration. Possible sick contacts at home. Worsening migraine attack. Patient consulted [facility] ER yesterday morning. Patient found to be COVID-19 positive. Patient discharged on prednisone Rx. Patient consulted urgent care facility yesterday afternoon due to worsening symptoms. No improvement despite IM Toradol and Benadryl administration. Patient went back to ER last night for intractable symptoms. Medical History as above Surgical History : None Family History : Bronchial asthma Personal/Social history : Non-smoker, no EtOH intake, unemployed Principal Diagnosis COVID-19 infection Acute bronchitis Intractable migraine Discharge Data Allergies Allergy/AdvReac Type Severity Reaction Status Date / Time No Known Allergies Allergy Verified 08/17/24 16:48 Procedures Performed Laboratory Results WBC 8.61 K/ul (4.8-10.8) 08/20/24 06:48 RBC 4.71 M/uL (4.20-5.40) 08/20/24 06:48 Hgb 12.8 g/dl (12.0-16.0) 08/20/24 06:48 Hct 38.8 % (37.0-47.0) 08/20/24 06:48 MCV 82.4 fL (80.0-100.0) 08/20/24 06:48 MCH 27.2 pg (25.0-34.0) 08/20/24 06:48 MCHC 33.0 g/dL (32.0-36.0) 08/20/24 06:48 RDW Std Deviation 39.5 fL (36.4-46.3) 08/20/24 06:48 RDW Coeff of [place]igo 13.1 % (11.5-14.5) 08/20/24 06:48 Plt Count 465 K/uL (130-400) H 08/20/24 06:48 MPV 8.9 fL (9.4-12.4) L 08/20/24 06:48 Immature Gran % (Auto) 0.6 % 08/18/24 02:27 Neut % (Auto) 84.3 % 08/18/24 02:27 Lymph % (Auto) 8.3 % 08/18/24 02:27 [place] % (Auto) 6.7 % 08/18/24 02:27 Eos % (Auto) 0.0 % 08/18/24 02:27 Baso % (Auto) 0.1 % 08/18/24 02:27 Neut # (Auto) 18.18 K/uL (1.40-6.50) H 08/18/24 02:27 Lymph # (Auto) 1.78 K/uL (1.20-3.40) 08/18/24 02:27 [place] # (Auto) 1.44 K/uL (0.11-0.59) H 08/18/24 02:27 Eos # (Auto) 0.00 K/uL (0.00-0.50) 08/18/24 02:27 Baso # (Auto) 0.02 K/uL (0.00-0.20) 08/18/24 02:27 Immature Gran # (Auto) 0.14 K/uL (0.01-0.20) 08/18/24 02:27 APTT 25 Seconds (21-31) 08/18/24 02:27 PTT Ratio 0.9 08/18/24 02:27 Sodium 139 mmol/L (136-145) 08/20/24 06:48 Potassium 3.3 mmol/L (3.5-5.1) L 08/20/24 06:48 Chloride 110 mmol/L (98-107) H 08/20/24 06:48 Carbon Dioxide 25 mmol/L (21-32) 08/20/24 06:48 Anion Gap 4 (3-11) 08/20/24 06:48 BUN 7 mg/dl (6-23) 08/20/24 06:48 Creatinine 0.93 mg/dl (0.6-1.2) 08/20/24 06:48 Est Cr Clr Drug Dosing 75.2 ml/min 08/20/24 06:48 eGFR 88.57 08/20/24 06:48 BUN/Creatinine Ratio 7.5 (10-20) L 08/20/24 06:48 Glucose 98 mg/dl (70-99(Fasting)) 08/20/24 06:48 Calcium 9.0 mg/dl (8.6-10.3) 08/20/24 06:48 Magnesium 2.1 mg/dl (1.7-2.4) 08/18/24 02:27 Total Bilirubin 0.4 mg/dl (0.2-1.0) 08/18/24 02:27 AST 19 U/L (13-39) 08/18/24 02:27 ALT 9 U/L (7-52) 08/18/24 02:27 Alkaline Phosphatase 58 U/L (34-104) 08/18/24 02:27 Troponin I High Sens 4.4 pg/ml (0-14) 08/18/24 02:27 C-Reactive Protein < 0.50 mg/dl (0-0.5) 08/19/24 06:00 Total Protein 6.4 gm/dl (6.0-8.3) 08/18/24 02:27 Albumin 3.9 gm/dl (3.4-5.0) 08/18/24 02:27 Globulin 2.5 gm/dl (2.5-4.0) 08/18/24 02:27 Albumin/Globulin Ratio 1.6 (0.9-2) 08/18/24 02:27 Procalcitonin 0.12 ng/ml (0-0.5) 08/19/24 06:00 Impressions Chest CTA 08/18/24 02:06 EXAM: CT angio chest PE protocol CLINICAL HISTORY: Pt. presents to the ED with a migraine from home via EMS. Pt. was seen at urgent care today and given IV bendaryl as well as toradol. Pt. went home and the pain got worse. She also had dizziness develop. She has a history of migraines. Patient is also COVID-19 Positive. Seen here yesterday for the same thing. pt denies preg 79 ml opti 320 PW TECHNIQUE: Contiguous 3.[address] angiographic images of the chest were acquired with the administration of intravenous contrast. Coronal and sagittal reconstructions were obtained. One of these 3D techniques was utilized: Maximum Intensity Pixel (MIP), 3D Reconstructed Images, Volume Rendered Images, Surface Shaded Rendering. One of the following dose reduction techniques was utilized for this exam: Automated exposure control, adjustment of the mA and/or kV according to patient size, and use of iterative reconstruction. COMPARISON: CXR 07/19/2024. FINDINGS: Aorta: The thoracic aorta is normal in caliber. No evidence of aneurysm, dissection, or significant atherosclerotic changes. Aortic arch and descending thoracic aorta are unremarkable. Pulmonary Arteries: Pulmonary arteries are normal in size and opacification. No evidence of pulmonary embolism. No stenosis or filling defects. Superior Vena Cava (SVC) and Inferior Vena Cava (IVC): Normal opacification and caliber. No evidence of thrombus or obstruction. Coronary Arteries: Coronary arteries are well-opacified. No significant stenosis or atherosclerotic changes. Mediastinum: No mediastinal mass or lymphadenopathy. Normal appearance of the thymus. Heart: Normal size and morphology of the heart. No pericardial effusion. Lungs: Lungs are clear with no evidence of consolidation, nodules, or masses. No pleural effusion or thickening. Bones: No fractures or lytic/sclerotic lesions of the visualized bony structures. Normal alignment and bone density. Soft Tissues: Normal appearance of the visualized soft tissues. No abnormal masses or fluid collections. IMPRESSION: 1. Normal CT angiography of the chest. 2. No evidence of significant vascular abnormalities. Electronically signed by Sirena Hidalgo 08-18-2024 04:33 AM Ordered Studies 08/18/24 02:06 CT angio chest PE protocol Stat Hospital Course (1) COVID-19: COVID-19 infection Acute bronchitis secondary to above --Chest CTA:Normal CT angiography of the chest. No evidence of significant vascular abnormalities. -- BioFire positive for COVID-19 -Normal procalcitonin, CRP levels Empirically on Rocephin, azithromycin>> position to oral antibiotics to complete the course Saturating well on room air Albuterol, Antitussives as needed Added bowel regimen to help with constipation Plan to discharge home today Intractable migraine Evaluated by neurology last admission Received sumatriptan Continue topiramate Continue magnesium, vitamin B2 Analgesics as needed Improved Advised to follow-up with neurology as outpatient Prediabetes HbA1c 5.6 DVT Px Lovenox SQ Code Status Full code Total Time Total Time Spent Total Time Spent (In Minutes): 42 minutes Discharge Plan Discharge Items Patient Disposition: Home - Self-Care Reason For Visit: CP,COVID,MIGRAINE Discharge Diagnosis: COVID-19 infection Acute bronchitis Intractable migraine Activity: Per Instructions section Exercise/Sports: Gradually increase as tolerated Non-emergency contact: Primary Care Provider and Neurologist Call non-emergency contact if: you have any medication questions, your symptoms worsen, your pain is concerning for you and you have a fever Follow-up/Referrals: Riri Krishna MD [Primary Care Provider] - Diet: Heart Healthy Addtl Attending Provider Instructions: Follow-up with your physician in 1 week Follow-up with your master at arms in 2 to 3 weeks for further evaluation of migraine. --Complete the antibiotic course as prescribed. Seek immediate medical attention if your symptoms reoccur or worsen Please take all medications as instructed on discharge list below. Please call if you have any questions or problems. You can reach a [facility] hospitalist on duty at [facility] 24 hours a day by calling [phone] Pending Studies at Discharge: No Stand-Alone Forms: My [facility], Smoking Cessation Medications and DC Order Prescriptions: New azithromycin 250 mg Tablet 250 mg PO QAM Qty: 3 0RF albuterol sulfate [Ventolin HFA] 90 mcg/actuation Hfa Aerosol Inhaler 2 puff inhalation Q6H PRN (Reason: shortness of breath or wheezing) Qty: 6.7 0RF docusate sodium 100 mg Capsule 100 mg PO BID PRN (Reason: constipation) Qty: 30 0RF polyethylene glycol 3350 [Miralax] 17 gram Powder In Packet 17 g PO DAILY PRN (Reason: constipation) Qty: 15 0RF dextromethorphan-guaifenesin 10-100 mg/5 mL Syrup 5 ml PO Q6H PRN (Reason: cough) Qty: 1 0RF famotidine 20 mg Tablet 20 mg PO BID PRN (Reason: Acid Reflux) Qty: 30 0RF Continued magnesium oxide 400 mg (241.3 mg magnesium) Tablet 400 mg PO QAM Qty: 30 0RF riboflavin (vitamin B2) 400 mg tablet 400 mg PO DAILY Qty: 30 0RF ondansetron HCl 8 mg tablet 8 mg PO Q8 PRN (Reason: Nausea) topiramate 50 mg tablet 50 mg PO HS sumatriptan succinate 50 mg tablet 100 mg PO UD Rx Instructions: TAKE 2 TABLETS AT ONSET OF MIGRAINE AND 1 TABLET EVERY 2 HOURS WITH MAX 5 sumatriptan succinate 50 mg tablet 100 mg PO DIRECTED Discontinued prednisone 50 mg tablet 50 mg PO DAILY 4 Days Qty: 4 0RF Discharge Orders: Discharge Order (Routine); Ordered 08/20/24 Ordered By: Omid Marcos Admission Data Admit Date/Time: 08/18/24 02:07 Attending Provider: Omid Marcos Admit Provider: Markel Kennedy Primary Care Provider: Riri Krishna
== END 2024-08-20 13:41 | disposition home or self-care (01) | DRG 179 ==
LOC: ED 20:26 → 2N 08-18 02:07